=== PATIENT | male | born 1955 | race Caucasian/White ===

== ENCOUNTER 2020-11-26 15:32 | Inpatient (IN) ==
[2020-11-26] MEDS ORDERED: 0.9 % SODIUM CHLORIDE 1,000 ML IV ONE ×2 (15:39→17:32)
--- NOTE | 2020-11-26 15:51 | Emergency Department Note ---
SOB HPI General Chief Complaint: Shortness of Breath/Dyspnea Stated Complaint: shortness of breath, body aches, fatigue Time Seen by Provider: 11/26/20 15:39 Source: patient Mode of arrival: ambulatory Limitations: no limitations History of Present Illness HPI Narrative: Narrative: Patient is a 64-year-old male that comes into the emergency department today after he was seen earlier at the urgent care. He was seen at the urgent care for shortness of breath. He was found to be hypoxic, and was advised to go to the emergency department. Patient indicates that around 5 days ago he started to feel ill with a mild sore throat, body aches, infrequent nonproductive cough, nausea, and some shortness of breath. He had a fever for 1 day, and then reports that the fever went away. He has felt fatigued. He denies any chest pain, wheezing, or dyspnea on exertion. He has not. He does have a history of type 2 diabetes and coronary artery disease with stent placement. He indicates that he feels like he may have influenza. He has not found any relieving or aggravating factors of his symptoms. Related Data Home Medications Medication Instructions Recorded Confirmed insulin detemir U-100 32 unit SQ 07/01/15 11/26/20 lisinopril 40 mg PO 07/01/15 11/26/20 omeprazole 20 mg PO ACB 07/01/15 11/26/20 pioglitazone 15 mg PO DAILY 07/01/15 11/26/20 saxagliptin 2.5 mg PO DAILY 07/01/15 11/26/20 atorvastatin 40 mg tablet 40 mg PO QDAY 05/14/19 11/26/20 furosemide 20 mg tablet 10 mg PO BID 05/14/19 11/26/20 aspirin 81 mg tablet,delayed 81 mg PO QDAY 10/19/20 11/26/20 release empagliflozin 25 mg tablet 25 mg PO QDAY 10/19/20 11/26/20 nateglinide 60 mg tablet 60 mg PO TID 10/19/20 11/26/20 nebivolol 20 mg tablet 20 mg PO QDAY 10/19/20 11/26/20 Previous Rx's Medication Instructions Recorded methocarbamol 500 mg tablet See Rx Instructions PO Q6H PRN #30 10/23/19 tab Allergies Allergy/AdvReac Type Severity Reaction Status Date / Time clopidogrel [From Plavix] Allergy Unknown Unknown Verified 11/26/20 15:08 metformin Allergy Unknown Unknown Verified 11/26/20 15:08 Review of Systems ROS ROS Narrative: Narrative: All systems ED: reviewed and negative except as stated. [facility] Narrative Patient History Narrative: Narrative: Medical/Surgical/Family History All Active Problems (Updated 11/26/20 @ 18:56 by JOSE Neal) Pneumonia due to COVID-19 virus (Acute) Hypoxia (Acute) Mixed hyperlipidemia (Chronic) Edema of lower extremity (Chronic) Arthralgia (Chronic) Presence of drug coated stent in anterior descending branch of left coronary artery (Chronic) Chest pain (Chronic) Coronary artery sclerosis (Chronic) Fracture of rib of left side (Chronic) Myocardial infarction (Chronic) Hemorrhoid (Chronic) Erectile dysfunction (Chronic) GERD (gastroesophageal reflux disease) (Chronic) Coronary artery disease (Chronic) Hyperlipidemia (Chronic) Long-term insulin use (Chronic) Hypertension (Chronic) Type 2 diabetes mellitus with hyperglycemia (Chronic) Morbid (severe) obesity due to excess calories (Chronic) Body mass index [BMI]40.0-44.9, adult (Chronic) Diabetes (Chronic) Fatigue (Chronic) Neck pain (Chronic) Medical History Arthralgia Body mass index [BMI]40.0-44.9, adult Chest pain Coronary artery disease Coronary artery sclerosis Diabetes Edema of lower extremity Erectile dysfunction Fatigue Fracture of rib of left side GERD (gastroesophageal reflux disease) Hemorrhoid Hyperlipidemia Hypertension Long-term insulin use Mixed hyperlipidemia Morbid (severe) obesity due to excess calories Myocardial infarction Neck pain Presence of drug coated stent in anterior descending branch of left coronary artery Type 2 diabetes mellitus with hyperglycemia Surgical History History of ankle surgery (~1992) Repair History of cardiac catheterization (~03/08/17) w/stent placement History of hemorrhoidectomy History of placement of stent in anterior descending branch of left coronary artery History of removal of retained hardware (~1994) Family History Unknown Myocardial infarction Social History Smoking Status: Never smoker Alcohol Intake Frequency: does not drink Substance Use: does not use Exam Narrative Narrative: Narrative: General Limitations: no limitations General appearance: Present alert and in no apparent distress Eye Eye: Present normal appearance; Absent scleral icterus ENT ENT: Present normal oropharynx and mucous membranes moist; Absent nasal congestion and hoarse voice Neck Neck: Present full ROM and trachea midline; Absent meningismus, lymphadenopathy and thyromegaly Chest Chest: Present symmetric chest wall rise Respiratory Respiratory: Present normal lung sounds bilaterally; Absent respiratory distress, rales/crackles, wheezes, stridor, accessory muscle use and prolonged expiratory phase Cardiovascular Cardiovascular: Present regular rate and normal rhythm; Absent systolic murmur and diastolic murmur Adbominal Abdominal: Present soft; Absent distention and tenderness Extremities Extremities: Present normal inspection, full ROM and normal capillary refill; Absent pedal edema, calf tenderness, cyanosis and clubbing Back Back: Present normal inspection and full ROM; Absent CVA tenderness (R) and CVA tenderness (L) Neurological Neurological: Present alert and oriented X3 Psychiatric Psychiatric: Present normal affect and normal mood Skin Skin: Present warm (WNL) and dry Course Vital Signs Vital signs: Vital Signs Temperature 98.4 F 11/26/20 15:34 Pulse Rate 89 11/26/20 15:34 Respiratory Rate 17 11/26/20 15:34 Pulse Oximetry (%) 92 11/26/20 15:34 Temperature 99.1 F H 11/26/20 15:57 Pulse Rate 83 11/26/20 19:17 Respiratory Rate 17 11/26/20 15:41 Blood Pressure 125/50 11/26/20 17:46 Pulse Oximetry (%) 91 11/26/20 19:17 [facility] Narrative Medical decision making narrative: Narrative: 64-year-old male who was seen earlier today at the urgent care, and was found to be hypoxic. He was evaluated here in the emergency department. Room air saturation 88%. His coronavirus test from the urgent care today is positive for coronavirus. Patient requiring 4 L of O2 via nasal cannula. Chest x-ray consistent with suspected Covid pneumonia. Patient was given 6 mg of dexamethasone in the emergency department. EKG normal sinus rhythm with no acute coronary syndrome findings. EKG was interpreted by my supervising physician today, Dr. Cosme Nevarez. Patient's white count today 3.7. H&H normal. Patient's platelets 150. His sodium is 131 with a glucose of 424. Patient was given a total of 2 L normal saline ordered 10 units of IV regular insulin. Recheck of patient's blood sugar was 272. Patient currently requiring 4 L of oxygen via nasal cannula maintain oxygen saturations around 94% sustaining. Patient would benefit from hospital admission for further monitoring due to his hypoxia with the coronavirus. I was able to consult with hospitalist at [facility], Dr. Roland who does accept the patient for hospital admission. Lab Data Lab results reviewed: Yes I reviewed the patient's lab results. Result diagrams: 11/26/20 15:52 11/26/20 15:52 Labs: Lab Results 11/26/20 11/26/20 Range/Units 15:52 15:52 WBC 3.7 L (4.5-11.0) K/mcL RBC 4.81 (4.50-5.90) M/mcL Hgb 14.4 (13.5-16.5) g/dL Hct 42.4 (41.0-55.0) % MCV 88.1 (80.0-100.0) fL MCH 29.9 (26.0-34.0) pg MCHC 34.0 (31.0-36.0) g/dL RDW 14.6 H (11.5-14.5) % Plt Count 150 (140-440) K/mcL MPV 11.5 H (7.4-10.4) fL Neut % (Auto) 75.6 (38.0-78.0) % Lymph % (Auto) 17.0 (15.0-49.0) % [place] % (Auto) 7.1 (1.0-12.0) % Eos % (Auto) 0 (0.0-7.0) % Baso % (Auto) 0.3 (0.0-2.0) % Lymph # (Auto) 0.62 L (1.50-4.80) K/mcL [place] # (Auto) 0.26 (0.10-0.90) K/mcL Eos # (Auto) 0 (0.00-0.70) K/mcL Baso # (Auto) 0.01 (0.00-0.20) K/mcL Absolute Neutrophils 2.76 (1.80-8.00) K/mcL Sodium 131 L (133-145) mmol/L Potassium 4.3 (3.3-5.1) mmol/L Chloride 97 (96-108) mmol/L Carbon Dioxide 19 L (22-30) mmol/L Anion Gap 15.0 (8.0-16.0) BUN 11 (8-23) mg/dL Creatinine 1.0 (0.7-1.2) mg/dL GFR Calculation 80 Glucose 424 H (70-105) mg/dL Calcium 8.1 L (8.6-10.4) mg/dL Total Bilirubin 0.4 (0.1-1.0) mg/dL AST 20 (<40) U/L ALT 17 (<40) U/L Alkaline Phosphatase 86 (39-117) U/L Total Protein 6.5 (5.9-8.4) gm/dL Albumin 3.4 (3.2-5.2) gm/dL Globulin 3.1 (2.2-3.7) gm/dL Albumin/Globulin Ratio 1.1 (1.0-2.3) Radiology Data Radiology results reviewed: Yes I reviewed the patient's radiology results. Radiology results narrative: Ordering Physician: Jose Bacon Date of Service: 11/26/20 Procedure(s): XR chest 1V portable Accession Number(s): [id number] INDICATION: dyspnea TECHNIQUE: AP portable semiupright chest x-ray COMPARISON: None FINDINGS: Lungs:A lateral pulmonary parenchymal infiltrates with peripheral distribution. Appearance is consistent with pneumonia and covid pneumonia is likely. Heart, vascular:No significant cardiomegaly. Pulmonary vascularity is normal. No pulmonary edema or pulmonary congestion Mediastinum, maryann:No mediastinal widening. No hilar mass Pleura:No pleural fluid. No pleural-based mass or calcification Skeletal:Negative. IMPRESSION: 1. Bilateral interstitial pulmonary parenchymal infiltrates 2. Covid pneumonia suspected Interpreted and Authenticated by: Franklin Rivers 11/26/20 160 02 Public Speaking Teacher: <Electronically signed by Franklin Rivers M.D. in OV> 11/26/20 1605 Discharge Plan Patient/Caregiver Discharge Instructions Pt seen by HANDS ASSEMBLER/PA only: No Clinical Impression: Pneumonia due to COVID-19 virus, Hypoxia Patient Disposition: Xfer As Inpt ([facility]) Condition: Fair Follow up with: Andrew Hall DO [Primary Care Provider] - Prescriptions: No Action nateglinide 60 mg tablet 60 mg PO TID RF: 0 Jardiance 25 mg tablet 25 mg PO QDAY RF: 0 Bystolic 20 mg tablet 20 mg PO QDAY RF: 0 aspirin 81 mg tablet,delayed release (DR/EC) 81 mg PO QDAY RF: 0 furosemide [Lasix] 20 mg tablet 10 mg PO BID RF: 0 atorvastatin 40 mg tablet 40 mg PO QDAY RF: 0 methocarbamol 500 mg tablet See Rx Instructions PO Q6H PRN (Reason: pain) Qty: 30 RF: 0 pioglitazone 15 MG tablet 15 mg PO DAILY RF: 0 lisinopril 20 MG tablet 40 mg PO RF: 0 omeprazole 20 MG capsule 20 mg PO ACB RF: 0 insulin detemir U-100 100 UNIT/ML solution 32 unit SQ RF: 0 saxagliptin 2.5 MG tablet 2.5 mg PO DAILY RF: 0
--- NOTE | 2020-11-26 16:08 | XRay Report ---
INDICATION: dyspnea TECHNIQUE: AP portable semiupright chest x-ray COMPARISON: None FINDINGS: Lungs:A lateral pulmonary parenchymal infiltrates with peripheral distribution. Appearance is consistent with pneumonia and covid pneumonia is likely. Heart, vascular:No significant cardiomegaly. Pulmonary vascularity is normal. No pulmonary edema or pulmonary congestion Mediastinum, maryann:No mediastinal widening. No hilar mass Pleura:No pleural fluid. No pleural-based mass or calcification Skeletal:Negative. IMPRESSION: 1. Bilateral interstitial pulmonary parenchymal infiltrates 2. Covid pneumonia suspected Interpreted and Authenticated by: Franklin Rivers 11/26/20
[2020-11-26] MEDS ORDERED: DEXAMETHASONE 0.5 MG/5 ML ORAL.SOL PO ONE (16:09)
--- NOTE | 2020-11-26 16:10 | Emergency Department Note ---
SOB HPI General Chief Complaint: Shortness of Breath/Dyspnea Stated Complaint: shortness of breath, body aches, fatigue Time Seen by Provider: 11/26/20 15:39 Source: patient Mode of arrival: ambulatory Limitations: no limitations History of Present Illness HPI Narrative: Narrative: Related Data Home Medications Medication Instructions Recorded Confirmed insulin detemir U-100 32 unit SQ 07/01/15 11/26/20 lisinopril 40 mg PO 07/01/15 11/26/20 omeprazole 20 mg PO ACB 07/01/15 11/26/20 pioglitazone 15 mg PO DAILY 07/01/15 11/26/20 saxagliptin 2.5 mg PO DAILY 07/01/15 11/26/20 atorvastatin 40 mg tablet 40 mg PO QDAY 05/14/19 11/26/20 furosemide 20 mg tablet 10 mg PO BID 05/14/19 11/26/20 aspirin 81 mg tablet,delayed 81 mg PO QDAY 10/19/20 11/26/20 release empagliflozin 25 mg tablet 25 mg PO QDAY 10/19/20 11/26/20 nateglinide 60 mg tablet 60 mg PO TID 10/19/20 11/26/20 nebivolol 20 mg tablet 20 mg PO QDAY 10/19/20 11/26/20 Previous Rx's Medication Instructions Recorded methocarbamol 500 mg tablet See Rx Instructions PO Q6H PRN #30 10/23/19 tab Allergies Allergy/AdvReac Type Severity Reaction Status Date / Time clopidogrel [From Plavix] Allergy Unknown Unknown Verified 11/26/20 15:08 metformin Allergy Unknown Unknown Verified 11/26/20 15:08 Review of Systems ROS ROS Narrative: Narrative: PFSH Narrative Patient History Narrative: Narrative: Medical/Surgical/Family History All Active Problems (Updated 11/26/20 @ 18:56 by JOSE Neal) Pneumonia due to COVID-19 virus (Acute) Hypoxia (Acute) Mixed hyperlipidemia (Chronic) Edema of lower extremity (Chronic) Arthralgia (Chronic) Presence of drug coated stent in anterior descending branch of left coronary artery (Chronic) Chest pain (Chronic) Coronary artery sclerosis (Chronic) Fracture of rib of left side (Chronic) Myocardial infarction (Chronic) Hemorrhoid (Chronic) Erectile dysfunction (Chronic) GERD (gastroesophageal reflux disease) (Chronic) Coronary artery disease (Chronic) Hyperlipidemia (Chronic) Long-term insulin use (Chronic) Hypertension (Chronic) Type 2 diabetes mellitus with hyperglycemia (Chronic) Morbid (severe) obesity due to excess calories (Chronic) Body mass index [BMI]40.0-44.9, adult (Chronic) Diabetes (Chronic) Fatigue (Chronic) Neck pain (Chronic) Medical History Arthralgia Body mass index [BMI]40.0-44.9, adult Chest pain Coronary artery disease Coronary artery sclerosis Diabetes Edema of lower extremity Erectile dysfunction Fatigue Fracture of rib of left side GERD (gastroesophageal reflux disease) Hemorrhoid Hyperlipidemia Hypertension Long-term insulin use Mixed hyperlipidemia Morbid (severe) obesity due to excess calories Myocardial infarction Neck pain Presence of drug coated stent in anterior descending branch of left coronary artery Type 2 diabetes mellitus with hyperglycemia Surgical History History of ankle surgery (~1992) Repair History of cardiac catheterization (~03/08/17) w/stent placement History of hemorrhoidectomy History of placement of stent in anterior descending branch of left coronary artery History of removal of retained hardware (~1994) Family History Unknown Myocardial infarction Social History Smoking Status: Never smoker Alcohol Intake Frequency: does not drink Substance Use: does not use Exam Narrative Narrative: Narrative: General Limitations: no limitations Course Vital Signs Vital signs: Vital Signs Temperature 98.4 F 11/26/20 15:34 Pulse Rate 89 11/26/20 15:34 Respiratory Rate 17 11/26/20 15:34 Pulse Oximetry (%) 92 11/26/20 15:34 Temperature 95.8 F L 11/27/20 04:01 Pulse Rate 61 11/27/20 04:16 Respiratory Rate 19 11/27/20 04:16 Blood Pressure 120/74 11/27/20 04:01 Pulse Oximetry (%) 95 11/27/20 04:16 MDM MDM Narrative Medical decision making narrative: I evaluated and treated this patient in con junction with the JARED. I agree with their documented history, examination and medical decision making as documented separately. I also evaluated the patient in person with the following additional findings: Patient is complaining of shortness of breath. At the time of my initial exam he is able to speak comfortably in full sentences while on supplemental oxygen via nasal cannula. I discussed the diagnosis and plan for admission with him and his and they are agreeable. EKG performed at 3:56 PM: Sinus rhythm, rate 91. Normal P wave and QRS morphology. T waves are diffusely flattened. No ST segment deviation. Normal [place] QRS and QTc duration. No old EKG immediately available for comparison. EKG was interpreted by me. Lab Data Result diagrams: 11/26/20 15:52 11/26/20 15:52 Labs: Lab Results 11/26/20 11/26/20 11/26/20 Range/Units 15:52 15:52 15:52 WBC 3.7 L (4.5-11.0) K/mcL RBC 4.81 (4.50-5.90) M/mcL Hgb 14.4 (13.5-16.5) g/dL Hct 42.4 (41.0-55.0) % MCV 88.1 (80.0-100.0) fL MCH 29.9 (26.0-34.0) pg MCHC 34.0 (31.0-36.0) g/dL RDW 14.6 H (11.5-14.5) % Plt Count 150 (140-440) K/mcL MPV 11.5 H (7.4-10.4) fL Neut % (Auto) 75.6 (38.0-78.0) % Lymph % (Auto) 17.0 (15.0-49.0) % [place] % (Auto) 7.1 (1.0-12.0) % Eos % (Auto) 0 (0.0-7.0) % Baso % (Auto) 0.3 (0.0-2.0) % Lymph # (Auto) 0.62 L (1.50-4.80) K/mcL [place] # (Auto) 0.26 (0.10-0.90) K/mcL Eos # (Auto) 0 (0.00-0.70) K/mcL Baso # (Auto) 0.01 (0.00-0.20) K/mcL Absolute Neutrophils 2.76 (1.80-8.00) K/mcL PT 13.9 (11.9-14.5) sec INR 1.0 (0.9-1.1) D-Dimer 1.45 H (0.27-0.50) ug/mL Sodium 131 L (133-145) mmol/L Potassium 4.3 (3.3-5.1) mmol/L Chloride 97 (96-108) mmol/L Carbon Dioxide 19 L (22-30) mmol/L Anion Gap 15.0 (8.0-16.0) BUN 11 (8-23) mg/dL Creatinine 1.0 (0.7-1.2) mg/dL GFR Calculation 80 Glucose 424 H (70-105) mg/dL Calcium 8.1 L (8.6-10.4) mg/dL Ferritin (30.0-400.0) ng/mL Total Bilirubin 0.4 (0.1-1.0) mg/dL AST 20 (<40) U/L ALT 17 (<40) U/L Alkaline Phosphatase 86 (39-117) U/L Total Creatine Kinase (24-195) U/L C-Reactive Protein (0.03-0.80) mg/dL Total Protein 6.5 (5.9-8.4) gm/dL Albumin 3.4 (3.2-5.2) gm/dL Globulin 3.1 (2.2-3.7) gm/dL Albumin/Globulin Ratio 1.1 (1.0-2.3) Procalcitonin (<0.10) ng/mL 11/26/20 11/26/20 Range/Units 15:52 15:52 WBC (4.5-11.0) K/mcL RBC (4.50-5.90) M/mcL Hgb (13.5-16.5) g/dL Hct (41.0-55.0) % MCV (80.0-100.0) fL MCH (26.0-34.0) pg MCHC (31.0-36.0) g/dL RDW (11.5-14.5) % Plt Count (140-440) K/mcL MPV (7.4-10.4) fL Neut % (Auto) (38.0-78.0) % Lymph % (Auto) (15.0-49.0) % [place] % (Auto) (1.0-12.0) % Eos % (Auto) (0.0-7.0) % Baso % (Auto) (0.0-2.0) % Lymph # (Auto) (1.50-4.80) K/mcL [place] # (Auto) (0.10-0.90) K/mcL Eos # (Auto) (0.00-0.70) K/mcL Baso # (Auto) (0.00-0.20) K/mcL Absolute Neutrophils (1.80-8.00) K/mcL PT (11.9-14.5) sec INR (0.9-1.1) D-Dimer (0.27-0.50) ug/mL Sodium (133-145) mmol/L Potassium (3.3-5.1) mmol/L Chloride (96-108) mmol/L Carbon Dioxide (22-30) mmol/L Anion Gap (8.0-16.0) BUN (8-23) mg/dL Creatinine (0.7-1.2) mg/dL GFR Calculation Glucose (70-105) mg/dL Calcium (8.6-10.4) mg/dL Ferritin 1120.0 H (30.0-400.0) ng/mL Total Bilirubin (0.1-1.0) mg/dL AST (<40) U/L ALT (<40) U/L Alkaline Phosphatase (39-117) U/L Total Creatine Kinase 95 (24-195) U/L C-Reactive Protein 11.60 H (0.03-0.80) mg/dL Total Protein (5.9-8.4) gm/dL Albumin (3.2-5.2) gm/dL Globulin (2.2-3.7) gm/dL Albumin/Globulin Ratio (1.0-2.3) Procalcitonin 0.32 H (<0.10) ng/mL Discharge Plan Patient/Caregiver Discharge Instructions Pt seen by [facility] MAGISTRATE/PA only: No Clinical Impression: Pneumonia due to COVID-19 virus, Hypoxia Patient Disposition: Xfer As Inpt ([facility]) Condition: Fair Discharge Date/Time: 11/26/20 21:03 Discharge Location: [facility]
[2020-11-26] MEDS ORDERED: DEXAMETHASONE 4 MG TABLET PO ONE (16:19)
[2020-11-26 16:57] LABS: Basophils # (Auto) 0.01 K/mcL (0.00-0.20); Basophils % (Auto) 0.3 % (0.0-2.0); Eosinophils # (Auto) 0 K/mcL (0.00-0.70); Eosinophils % (Auto) 0 % (0.0-7.0); Hematocrit 42.4 % (41.0-55.0); Hemoglobin 14.4 g/dL (13.5-16.5); Lymphocytes # (Auto) 0.62 K/mcL (1.50-4.80); Mean Cell Volume 88.1 fL (80.0-100.0); Mean Platelet Volume 11.5 fL (7.4-10.4); Monocytes # (Auto) 0.26 K/mcL (0.10-0.90); Monocytes % (Auto) 7.1 % (1.0-12.0); Neutrophils % (Auto) 75.6 % (38.0-78.0); Platelet Count 150 K/mcL (140-440); RBC 4.81 M/mcL (4.50-5.90); Red Cell Distribution Width 14.6 % (11.5-14.5); WBC 3.7 K/mcL (4.5-11.0)
[2020-11-26 17:22] LABS: ALT/SGPT 17 U/L (<40); AST/SGOT 20 U/L (<40); Albumin 3.4 gm/dL (3.2-5.2); Albumin/Globulin Ratio 1.1 (1.0-2.3); Alkaline Phosphatase 86 U/L (39-117); Bilirubin,Total 0.4 mg/dL (0.1-1.0); Blood Urea Nitrogen 11 mg/dL (8-23); Calcium 8.1 mg/dL (8.6-10.4); Carbon Dioxide 19 mmol/L (22-30); Chloride 97 mmol/L (96-108); Globulin 3.1 gm/dL (2.2-3.7); Glomerular Filtration Rate 80; Glucose 424 mg/dL (70-105)
[2020-11-26] MEDS ORDERED: INSULIN REGULAR, HUMAN 1 UNIT/0.01 ML UNIT IV ONE (17:32)
[2020-11-26] MEDS ORDERED: REMDESIVIR 200 MG in 0.9 % SODIUM CHLORIDE 250 ML IV ONE ×2 (17:44→21:11)
--- NOTE | 2020-11-26 18:09 | Internal Med History&Physical ---
HPI History of Present Illness Patient information: Note initiated : 11/26/20 at 6:03 pm Service Date, if different from initiated Date: [] Patient: Jennifer Luu a 64 y/o M admitted on for shortness of breath, body aches, fatigue. Chief Complaint: [] History of present illness: Mr. Luu is a 64 year old M History of diabetes hypertension CAD who has been feeling ill for about a week and started with sore throat body aches and fevers per day fatigue shortness of breath he has a cough that is mildly productive. Shortness of breath has been worsening a week and fatigue has been worsening. Presented to urgent care today and then sent to the ER because he was hypoxic in the mid 80s. Covid test was positive. Chest x-ray with bilateral infiltrates. He is on 3 to 4 L nasal cannula at this time. Denies chest pain. Review of Systems: Pertinent positive as above. Denies headache/chills/nausea/vomiting/chest or abdominal pain/diarrhea. Remaining 10 point review of system reviewed negative PFSH PFSH All Active Problems (Updated 11/26/20 @ 15:22 by Clemente Ma PA-C) Hypoxia (Acute) Mixed hyperlipidemia (Chronic) Edema of lower extremity (Chronic) Arthralgia (Chronic) Presence of drug coated stent in anterior descending branch of left coronary artery (Chronic) Chest pain (Chronic) Coronary artery sclerosis (Chronic) Fracture of rib of left side (Chronic) Myocardial infarction (Chronic) Hemorrhoid (Chronic) Erectile dysfunction (Chronic) GERD (gastroesophageal reflux disease) (Chronic) Coronary artery disease (Chronic) Hyperlipidemia (Chronic) Long-term insulin use (Chronic) Hypertension (Chronic) Type 2 diabetes mellitus with hyperglycemia (Chronic) Morbid (severe) obesity due to excess calories (Chronic) Body mass index [BMI]40.0-44.9, adult (Chronic) Diabetes (Chronic) Fatigue (Chronic) Neck pain (Chronic) Medical History Arthralgia Body mass index [BMI]40.0-44.9, adult Chest pain Coronary artery disease Coronary artery sclerosis Diabetes Edema of lower extremity Erectile dysfunction Fatigue Fracture of rib of left side GERD (gastroesophageal reflux disease) Hemorrhoid Hyperlipidemia Hypertension Long-term insulin use Mixed hyperlipidemia Morbid (severe) obesity due to excess calories Myocardial infarction Neck pain Presence of drug coated stent in anterior descending branch of left coronary artery Type 2 diabetes mellitus with hyperglycemia Surgical History History of ankle surgery (~1992) Repair History of cardiac catheterization (~03/08/17) w/stent placement History of hemorrhoidectomy History of placement of stent in anterior descending branch of left coronary artery History of removal of retained hardware (~1994) Family History Unknown Myocardial infarction Social History marital status: occupational status: employed smoking status: Never smoker alcohol intake frequency: does not drink substance use type: does not use MEDS/ALLERGIES Home Medications and Allergies Home Medications Medication Instructions Recorded Confirmed Type insulin detemir U-100 32 unit SQ 07/01/15 11/26/20 History lisinopril 40 mg PO 07/01/15 11/26/20 History omeprazole 20 mg PO ACB 07/01/15 11/26/20 History pioglitazone 15 mg PO DAILY 07/01/15 11/26/20 History saxagliptin 2.5 mg PO DAILY 07/01/15 11/26/20 History atorvastatin 40 mg tablet 40 mg PO QDAY 05/14/19 11/26/20 History furosemide 20 mg tablet 10 mg PO BID 05/14/19 11/26/20 History methocarbamol 500 mg tablet See Rx Instructions PO Q6H PRN #30 10/23/19 11/26/20 Rx tab aspirin 81 mg tablet,delayed 81 mg PO QDAY 10/19/20 11/26/20 History release empagliflozin 25 mg tablet 25 mg PO QDAY 10/19/20 11/26/20 History nateglinide 60 mg tablet 60 mg PO TID 10/19/20 11/26/20 History nebivolol 20 mg tablet 20 mg PO QDAY 10/19/20 11/26/20 History Allergies Allergy/AdvReac Type Severity Reaction Status Date / Time clopidogrel [From Plavix] Allergy Unknown Unknown Verified 11/26/20 15:08 metformin Allergy Unknown Unknown Verified 11/26/20 15:08 EXAM Constitutional Vitals: Temp Pulse Resp BP Pulse Ox 99.1 F H 88 17 132/79 94 11/26/20 15:57 11/26/20 17:02 11/26/20 15:41 11/26/20 17:16 11/26/20 17:02 Exam: General: Alert, Awake, No acute Distress, obese Eyes/N/T: EOMI, PERRL, Head/Neck: neck supple, normocephalic atraumatic CV: RRR, No murmurs, normal s1/s2 Pulm: Clear b/l, no wheezing/rhonchi/rales Abd: soft, nontender, +BS x4 Ext: no clubbing/cyanosis/edema Neuro: Alert, no focal deficits, moves all extremities, CN 2-12 grossly intact, symmetrical strength b/l upper/lower, sensations intact b/l upper/lower Skin: warm/dry DATA Data Completed and Pending Labs: Labs from last 24 hours 11/26/20 11/26/20 15:52 15:52 WBC 3.7 L RBC 4.81 Hgb 14.4 Hct 42.4 MCV 88.1 MCH 29.9 MCHC 34.0 RDW 14.6 H Plt Count 150 MPV 11.5 H Neut % (Auto) 75.6 Lymph % (Auto) 17.0 [place] % (Auto) 7.1 Eos % (Auto) 0 Baso % (Auto) 0.3 Lymph # (Auto) 0.62 L [place] # (Auto) 0.26 Eos # (Auto) 0 Baso # (Auto) 0.01 Absolute Neutrophils 2.76 Sodium 131 L Potassium 4.3 Chloride 97 Carbon Dioxide 19 L Anion Gap 15.0 BUN 11 Creatinine 1.0 GFR Calculation 80 Glucose 424 H Calcium 8.1 L Total Bilirubin 0.4 AST 20 ALT 17 Alkaline Phosphatase 86 Total Protein 6.5 Albumin 3.4 Globulin 3.1 Albumin/Globulin Ratio 1.1 A/P Narrative A/P Narrative: A: *Covid pneumonia: -Afebrile on admission, no leukocytosis *Acute hypoxic respiratory failure: -currently 3-4L NC *DM: *CAD w/stent: *HTN: *Obesity: *GERD: * P: -Rem/Dexa -O2 support, IS/Acapella -daily proning / mobilization -Check ABG -basal and SSI -cont home ACEI/BB -cont home ASA/Statin - -pt/ot -ppx: lovenox bid / home ppi full code Time Spent With Patient Time: Total time spent is greater than 50% in coordination of care (as documented) at patient's floor/unit and/or counseling patient:
[2020-11-26] MEDS ORDERED: DEXTROSE 50% 50 ML VIAL IV PRN ×3 (20:16→21:03)
[2020-11-26] MEDS ORDERED: DEXTROSE 31 GM ORAL.SUSP PO PRN ×3 (20:16→21:03)
[2020-11-26 21:00] LABS: Creatine Kinase 95 U/L (24-195)
[2020-11-26] MEDS ORDERED: INSULIN LISPRO 1 UNIT/0.01 ML UNIT SQ SCH (21:03)
[2020-11-26] MEDS ORDERED: SENNOSIDES 1 TABLET PO PRN (21:03)
[2020-11-26] MEDS ORDERED: ONDANSETRON 4 MG/2 ML VIAL IV PRN (21:03)
[2020-11-26] MEDS ORDERED: IPRATROPIUM/ALBUTEROL 3 ML AMPUL.NEB NEB PRN (21:03)
[2020-11-26] MEDS ORDERED: POTASSIUM CHLORIDE 40 MEQ in DEXTROSE 5% IN WATER 500 ML IV PRN (21:03)
[2020-11-26] MEDS ORDERED: POTASSIUM CHLORIDE 20 MEQ TABLET PO PRN ×2 (21:03)
[2020-11-26] MEDS ORDERED: MAGNESIUM SULFATE 2 GM/50 ML BAG IV PRN (21:03)
[2020-11-26] MEDS ORDERED: ACETAMINOPHEN 325 MG TABLET PO PRN (21:03)
[2020-11-26] MEDS ORDERED: REMDESIVIR 100 MG in 0.9 % SODIUM CHLORIDE 250 ML IV SCH (21:03)
[2020-11-26] MEDS ORDERED: POLYETHYLENE GLYCOL 3350 17 GM PACKET PO PRN (21:03)
[2020-11-26 21:05] LABS: Prothrombin Time 13.9 sec (11.9-14.5)
[2020-11-26] MEDS ORDERED: ENOXAPARIN 40 MG/0.4 ML SYRINGE ONE (21:56)
[2020-11-26] MEDS: 0.9 % SODIUM CHLORIDE 10 ML SYRINGE IV SCH (22:24)
[2020-11-26] MEDS: ENOXAPARIN 40 MG/0.4 ML SYRINGE SQ SCH (22:26)
[2020-11-26 22:48] LABS: Hemoglobin A1C 12.4 % Hgb (4.0-6.0)
[2020-11-26] MEDS: INSULIN LISPRO 1 UNIT/0.01 ML UNIT SQ SCH (23:30)
[2020-11-27] MEDS ORDERED: INSULIN LISPRO 1 UNIT/0.01 ML UNIT SQ SCH
[2020-11-27] MEDS: INSULIN LISPRO 1 UNIT/0.01 ML UNIT SQ SCH ×6 (05:21→21:28)
[2020-11-27] MEDS: 0.9 % SODIUM CHLORIDE 10 ML SYRINGE IV SCH ×3 (05:21→21:29)
[2020-11-27 06:42] LABS: Hematocrit 40.4 % (41.0-55.0); Hemoglobin 13.6 g/dL (13.5-16.5); Mean Cell Volume 89.6 fL (80.0-100.0); Mean Corpuscular HGB Conc 33.7 g/dL (31.0-36.0); Mean Platelet Volume 11.8 fL (7.4-10.4); Platelet Count 141 K/mcL (140-440); RBC 4.51 M/mcL (4.50-5.90); Red Cell Distribution Width 14.4 % (11.5-14.5); WBC 3.1 K/mcL (4.5-11.0)
[2020-11-27] MEDS: ENOXAPARIN 40 MG/0.4 ML SYRINGE SQ SCH ×2 (08:07→21:28)
[2020-11-27] MEDS: PANTOPRAZOLE 40 MG TABLET PO SCH (08:12)
[2020-11-27] MEDS: DEXAMETHASONE 4 MG TABLET PO SCH (08:13)
[2020-11-27 08:18] LABS: Anisocytosis FEW (None Seen); Band Neutrophils % 6 % (0-10); Lymphocytes % 8 % (15-49); Monocytes % (Manual) 8 % (1-12); Platelet Estimate NORMAL (Normal); RBC Morphology ABNORMAL (Normal); Segmented Neutrophils % 78 % (38-78)
--- NOTE | 2020-11-27 08:30 | Internal Med Progress Note ---
SUBJECTIVE Subjective Patient information: Note initiated : 11/27/20 at 8:22 am Service Date, if different from initiated Date: [] Patient: Jennifer Luu 65 y/o M admitted on 11/26/20 for shortness of breath, body aches, fatigue. Chief Complaint: [] Interval history: History of present illness: Mr. Luu is a 64 year old M History of diabetes hypertension CAD who has been feeling ill for about a week and started with sore throat body aches and fevers per day fatigue shortness of breath he has a cough that is mildly productive. Shortness of breath has been worsening a week and fatigue has been worsening. Presented to urgent care today and then sent to the ER because he was hypoxic in the mid 80s. Covid test was positive. Chest x-ray with bilateral infiltrates. He is on 3 to 4 L nasal cannula at this time. Denies chest pain. 11/27 Constitutional Vitals: Vital Signs Temp Pulse Resp BP Pulse Ox 97.4 F 60 19 139/79 95 11/27/20 08:01 11/27/20 08:01 11/27/20 08:01 11/27/20 08:01 11/27/20 08:01 Period Temp Pulse Resp BP Sys/Uriostegui Pulse Ox Last 24 Hr 95.8 F-99.1 F 60-92 17-32 116-164/50-96 86-96 Intake and Output 11/26/20 11/27/20 11/27/20 21:59 05:59 13:59 Intake Total 1999 550 Output Total 850 Balance 1999 -300 Weight 122.47 kg Intake & Output: Intake & Output 11/26/20 11/27/20 11/27/20 21:59 05:59 13:59 Intake Total 2000 550 Output Total 850 Balance 1999 -300 Weight 122.47 kg Intake: IV 2000 250 Sodium Chloride 0.9% 1,000 ml @ 2000 Wide Open IV BOLUS ONE Rx#: [id number] Veklury 200 mg In Sodium 250 Chloride 0.9% 250 ml @ 500 mls/ hr IV ONCE ONE Rx#:[id number] Oral 300 Output: Void Amount 850 Other: Urine Appearance Clear Urine Color Bright Yellow Exam: General: Alert, Awake, No acute Distress, obese Eyes/N/T: EOMI, Head/Neck: neck supple, CV: RRR, No murmurs, Pulm: Clear b/l, no wheezing/rhonchi/rales Abd: soft, nontender, +BS x4 Ext: no clubbing/cyanosis/edema Neuro: Alert, no focal deficits, moves all extremities, Skin: warm/dry OBJ DATA Labs CBC & Chem 7: 11/27/20 05:02 11/26/20 15:52 Labs: Abnormal Lab Results 11/27/20 11/27/20 11/26/20 05:02 05:02 21:08 WBC 3.1 L Hct 40.4 L RDW MPV 11.8 H Lymph # (Auto) Lymphocytes % 8 L RBC Morphology Abnormal A Anisocytosis Few A D-Dimer Sodium Carbon Dioxide Glucose Hemoglobin A1c 12.4 H Calcium Ferritin C-Reactive Protein 11.40 H Procalcitonin 11/26/20 11/26/20 11/26/20 15:52 15:52 15:52 WBC Hct RDW MPV Lymph # (Auto) Lymphocytes % RBC Morphology Anisocytosis D-Dimer 1.45 H Sodium Carbon Dioxide Glucose Hemoglobin A1c Calcium Ferritin 1120.0 H C-Reactive Protein 11.60 H Procalcitonin 0.32 H 11/26/20 11/26/20 15:52 15:52 WBC 3.7 L Hct RDW 14.6 H MPV 11.5 H Lymph # (Auto) 0.62 L Lymphocytes % RBC Morphology Anisocytosis D-Dimer Sodium 131 L Carbon Dioxide 19 L Glucose 424 H Hemoglobin A1c Calcium 8.1 L Ferritin C-Reactive Protein Procalcitonin Meds: Medications Acetaminophen (Acetaminophen 325 Mg Tablet) 650 mg PO Q6HP PRN PRN Reason: PAIN/FEVER > 101 Albuterol/Ipratropium (Ipratropium/Albuterol 3 Ml Ampul.Neb) 3 ml NEB Q4HP PRN PRN Reason: Shortness Of Breath Dexamethasone (Dexamethasone 4 Mg Tablet) 6 mg PO DAILY [facility] Last Admin: 11/27/20 08:13 Dose: 6 mg Documented by: Dextrose (Dextrose 50% 50 Ml Vial) 0 ml IV UD PRN PRN Reason: Hypoglycemia Diagnostic Test (Pha) (Accu-Chek 1 Each Strip) 1 each FS Q4 [facility] Last Admin: 11/27/20 08:15 Dose: 1 each Documented by: Enoxaparin Sodium (Enoxaparin 40 Mg/0.4 Ml Syringe) 40 mg SQ BID [facility] Last Admin: 11/27/20 08:07 Dose: 40 mg Documented by: Glucose (Dextrose 31 Gm Oral.Susp) 15 gm PO PRN PRN PRN Reason: Hypoglycemia Potassium Chloride 40 meq/ (Dextrose) 520 mls @ 130 mls/hr IV UD PRN PRN Reason: Potassium < 3 Magnesium Sulfate (Magnesium Sulfate) 2 gm in 50 mls @ 50 mls/hr IV UD PRN PRN Reason: Magnesium </= 1.6 REMDESIVIR 100 mg/ Sodium (Chloride) 250 mls @ 500 mls/hr IV Q24H [facility] Stop: 11/30/20 14:29 Insulin Human Lispro (Insulin Lispro 1 Unit/0.01 Ml Unit) 0 unit SQ Q4 [facility]; Protocol Last Admin: 11/27/20 05:21 Dose: 8 units Documented by: Ondansetron HCl (Ondansetron 4 Mg/2 Ml Vial) 4 mg IV Q4HP PRN PRN Reason: Nausea And Vomiting Pantoprazole Sodium (Pantoprazole 40 Mg Tablet) 40 mg PO QAMAC [facility] Last Admin: 11/27/20 08:12 Dose: 40 mg Documented by: Polyethylene Glycol (Polyethylene Glycol 3350 17 Gm Packet) 17 gm PO DAILYP PRN PRN Reason: Constipation Potassium Chloride (Potassium Chloride 20 Meq Tablet) 40 meq PO UD PRN PRN Reason: Potssium is 3-3.5 Potassium Chloride (Potassium Chloride 20 Meq Tablet) 40 meq PO UD PRN PRN Reason: Potassium < 3 Senna (Sennosides 1 Tablet) 2 tab PO DAILYP PRN PRN Reason: Constipation Sodium Chloride (0.9 % Sodium Chloride 10 Ml Syringe) 10 ml IV Q8 [facility] Last Admin: 11/27/20 05:21 Dose: 10 ml Documented by: A/P Narrative A/P Narrative: A: *Covid pneumonia with borderline ARDS per ratio: -Afebrile on admission, no leukocytosis *Acute hypoxic respiratory failure: -changed to vapotherm b/c he would desat when falling asleep *DM, uncontrolled: A1c 12.4 -pt admits to not being entirely compliant with meds *CAD w/stent: *HTN: *Obesity: *?EMMA: *GERD: * P: -Rem/Dexa -O2 support, IS/Acapella -daily proning / mobilization -basal (may need uptitration) and SSI -cont home ACEI/BB -cont home ASA/Statin -still waiting for meds to be reconciled before starting home meds -may benefit from sleep study outpt -pt/ot -ppx: lovenox bid / home ppi full code Time Spent With Patient Time: Total time spent is greater than 50% in coordination of care (as documented) at patient's floor/unit and/or counseling patient:
[2020-11-27] MEDS ORDERED: INSULIN GLARGINE, HUMAN 1 UNIT/0.01 ML SQ SCH ×2 (09:00→21:00)
[2020-11-27] MEDS: ASPIRIN 81 MG TAB.CHEW PO SCH (09:05)
[2020-11-27 09:07] LABS: ALT/SGPT 14 U/L (<40); AST/SGOT 18 U/L (<40); Alkaline Phosphatase 76 U/L (39-117); Bilirubin,Direct < 0.2 mg/dL (0-0.3); Bilirubin,Total 0.3 mg/dL (0.1-1.0); Blood Urea Nitrogen 16 mg/dL (8-23); Calcium 7.9 mg/dL (8.6-10.4); Carbon Dioxide 16 mmol/L (22-30); Chloride 102 mmol/L (96-108); Globulin 3.1 gm/dL (2.2-3.7); Glomerular Filtration Rate 95; Glucose 281 mg/dL (70-105); Lactate Dehydrogenase 405 U/L (135-225); Phosphorous 2.2 mg/dL (2.5-4.5); Triglycerides 82 mg/dL (<150); Uric Acid 6.3 mg/dL (2.5-8.0)
[2020-11-27] MEDS: ATORVASTATIN 40 MG TABLET PO SCH (09:07)
[2020-11-27] MEDS ORDERED: INSULIN DETEMIR U SCH (09:15)
[2020-11-27] MEDS ORDERED: IPRATROPIUM/ALBUTEROL SULFATE 1 PUFF INHALER INH PRN (10:08)
[2020-11-27] MEDS ORDERED: IPRATROPIUM/ALBUTEROL SULFATE 1 PUFF INHALER INH ONE (10:08)
[2020-11-27] MEDS: FUROSEMIDE 20 MG TABLET PO SCH ×2 (10:17→21:29)
[2020-11-27] MEDS: NATEGLINIDE 120 MG TABLET PO SCH ×2 (11:55→17:40)
[2020-11-27] MEDS ORDERED: REMDESIVIR 100 MG in 0.9 % SODIUM CHLORIDE 250 ML IV SCH (14:00)
[2020-11-27] MEDS: cefTRIAXone 1 GM VIAL IV SCH (15:07)
--- NOTE | 2020-11-27 15:13 | Cat Scan Report ---
INDICATION: covid pneumonia COMPARISON: None TECHNIQUE: Axial noncontrast enhanced images through the chest. Sagittally and coronally reformatted images. MIP reformatted images. FINDINGS: Lungs:There are bilateral groundglass infiltrates with predominantly peripheral distribution. Appearance is typical for covid pneumonia. There are some small focal areas of consolidation with surrounding groundglass infiltrates, so-called halo sign. These are predominantly right upper lobe. Mediastinum, vascular: There is no pneumomediastinum. No pathologic mediastinal or hilar adenopathy Thoracic aorta is negative. No aneurysmal dilatation Heart:No significant cardiomegaly. No pericardial effusion. Severe coronary artery disease Pleura:No pleural effusion. No pleural-based mass. No pleural calcification. No pneumothorax. Axilla, supraclavicular regions, chest wall:No axillary or supraclavicular adenopathy. Musculoskeletal:No thoracic compression fractures. No lytic lesions. No sternal or rib lesions Upper Abdomen:Negative to the limits of noncontrast enhanced examination IMPRESSION: 1. Pulmonary parenchymal infiltrates consistent with covid pneumonia 2. Calcified coronary artery disease 3. No pneumomediastinum The exam was performed using radiation dose optimization techniques including, but not limited to, automated exposure control, adjustment of the mA and/or kV according to patient size and use of iterative reconstruction technique. Interpreted and Authenticated by: Franklin Rivers 11/27/20
[2020-11-27] MEDS: AZITHROMYCIN 500 MG in DEXTROSE 5% IN WATER 250 ML IV SCH (15:54)
--- NOTE | 2020-11-27 16:05 | EKG ---
[facility] Test Date: 2020-11-26 Pat Name: Jennifer Luu Department: ED Room: Gender: Male Color Grinder: JOSEMANUEL : 1955 Requested By: Jose Bacon Order Number: [id number] Reading MD: Steve Santana M.D. Measurements Intervals [place] Rate: 91 P: 52 OR: 144 QRS: -18 QRSD: 86 T: 7 QT: 372 QTc: 458 Interpretive Statements SINUS RHYTHM BORDERLINE T ABNORMALITIES, DIFFUSE LEADS NO PRIOR TRACING FOR COMPARISON BORDERLINE TRACING Electronically Signed On 11-27-2020 16:04:58 PDT by Steve Santana M.D. /store/[email or web address]/[id number]
[2020-11-27] MEDS ORDERED: DEXTROSE 50% 50 ML VIAL IV PRN (16:21)
[2020-11-27] MEDS ORDERED: DEXTROSE 31 GM ORAL.SUSP PO PRN (16:21)
[2020-11-27] MEDS ORDERED: INSULIN LISPRO 1 UNIT/0.01 ML UNIT SQ ONE (17:39)
[2020-11-27] MEDS: INSULIN GLARGINE, HUMAN 1 UNIT/0.01 ML SQ SCH (21:28)
[2020-11-28] MEDS: 0.9 % SODIUM CHLORIDE 10 ML SYRINGE IV SCH ×4 (05:01→22:00)
[2020-11-28 07:05] LABS: Basophils # (Auto) 0.02 K/mcL (0.00-0.20); Basophils % (Auto) 0.2 % (0.0-2.0); Eosinophils # (Auto) 0 K/mcL (0.00-0.70); Eosinophils % (Auto) 0 % (0.0-7.0); Hematocrit 40.9 % (41.0-55.0); Hemoglobin 13.6 g/dL (13.5-16.5); Lymphocytes # (Auto) 0.72 K/mcL (1.50-4.80); Lymphocytes % (Auto) 8.7 % (15.0-49.0); Mean Cell Volume 89.1 fL (80.0-100.0); Mean Corpuscular HGB Conc 33.3 g/dL (31.0-36.0); Mean Platelet Volume 11.5 fL (7.4-10.4); Monocytes # (Auto) 0.73 K/mcL (0.10-0.90); Monocytes % (Auto) 8.9 % (1.0-12.0); Neutrophils % (Auto) 82.2 % (38.0-78.0); Platelet Count 201 K/mcL (140-440); RBC 4.59 M/mcL (4.50-5.90); Red Cell Distribution Width 14.2 % (11.5-14.5); WBC 8.2 K/mcL (4.5-11.0)
[2020-11-28 07:46] LABS: ALT/SGPT 16 U/L (<40); AST/SGOT 19 U/L (<40); Albumin 3.2 gm/dL (3.2-5.2); Albumin/Globulin Ratio 1.1 (1.0-2.3); Alkaline Phosphatase 78 U/L (39-117); Bilirubin,Total 0.3 mg/dL (0.1-1.0); Blood Urea Nitrogen 18 mg/dL (8-23); Calcium 8.2 mg/dL (8.6-10.4); Carbon Dioxide 20 mmol/L (22-30); Chloride 102 mmol/L (96-108); Glomerular Filtration Rate 91; Glucose 245 mg/dL (70-105)
[2020-11-28 07:48] LABS: ALT/SGPT 16 U/L (<40); AST/SGOT 19 U/L (<40); Albumin 3.1 gm/dL (3.2-5.2); Alkaline Phosphatase 78 U/L (39-117); Bilirubin,Direct < 0.2 mg/dL (0-0.3); Bilirubin,Total 0.3 mg/dL (0.1-1.0); Blood Urea Nitrogen 18 mg/dL (8-23); Calcium 8.3 mg/dL (8.6-10.4); Carbon Dioxide 20 mmol/L (22-30); Chloride 102 mmol/L (96-108); Glomerular Filtration Rate 91; Glucose 241 mg/dL (70-105); Lactate Dehydrogenase 396 U/L (135-225); Phosphorous 2.5 mg/dL (2.5-4.5); Triglycerides 76 mg/dL (<150); Uric Acid 6.3 mg/dL (2.5-8.0)
[2020-11-28] MEDS: NATEGLINIDE 120 MG TABLET PO SCH ×3 (07:48→18:31)
[2020-11-28] MEDS: PANTOPRAZOLE 40 MG TABLET PO SCH (07:48)
[2020-11-28] MEDS ORDERED: Empagliflozin [Jardiance] 25 mg tablet PO SCH (09:00)
[2020-11-28] MEDS ORDERED: LISINOPRIL 20 MG TABLET PO SCH (09:00)
[2020-11-28] MEDS ORDERED: NEBIVOLOL 20 MG PO SCH (09:00)
[2020-11-28] MEDS: INSULIN LISPRO 1 UNIT/0.01 ML UNIT SQ SCH ×5 (09:06→22:11)
[2020-11-28] MEDS: DEXAMETHASONE 4 MG TABLET PO SCH (09:07)
[2020-11-28] MEDS: INSULIN GLARGINE, HUMAN 1 UNIT/0.01 ML SQ SCH ×2 (09:07→21:46)
[2020-11-28] MEDS: ASPIRIN 81 MG TAB.CHEW PO SCH (09:07)
[2020-11-28] MEDS: ENOXAPARIN 40 MG/0.4 ML SYRINGE SQ SCH (09:09)
[2020-11-28] MEDS: ATORVASTATIN 40 MG TABLET PO SCH (09:09)
[2020-11-28] MEDS: FUROSEMIDE 20 MG TABLET PO SCH ×2 (09:09→21:49)
[2020-11-28] MEDS: cefTRIAXone 1 GM VIAL IV SCH (09:16)
[2020-11-28] MEDS: AZITHROMYCIN 500 MG in DEXTROSE 5% IN WATER 250 ML IV SCH (09:17)
[2020-11-28] MEDS ORDERED: DEXTROSE 31 GM ORAL.SUSP PO PRN ×2 (13:31→21:25)
[2020-11-28] MEDS ORDERED: DEXTROSE 50% 50 ML VIAL IV PRN ×2 (13:31→21:25)
[2020-11-28] MEDS ORDERED: IPRATROPIUM/ALBUTEROL 3 ML AMPUL.NEB NEB PRN (13:41)
[2020-11-28] MEDS ORDERED: SENNOSIDES 1 TABLET PO PRN (13:41)
[2020-11-28] MEDS ORDERED: ACETAMINOPHEN 325 MG TABLET PO PRN (13:41)
[2020-11-28] MEDS ORDERED: POTASSIUM CHLORIDE 40 MEQ in DEXTROSE 5% IN WATER 500 ML IV PRN (13:41)
[2020-11-28] MEDS ORDERED: POLYETHYLENE GLYCOL 3350 17 GM PACKET PO PRN (13:41)
[2020-11-28] MEDS ORDERED: POTASSIUM CHLORIDE 20 MEQ TABLET PO PRN ×2 (13:41)
[2020-11-28] MEDS ORDERED: MAGNESIUM SULFATE 2 GM/50 ML BAG IV PRN (13:41)
[2020-11-28] MEDS ORDERED: ONDANSETRON 4 MG/2 ML VIAL IV PRN (13:41)
[2020-11-28] MEDS: REMDESIVIR 100 MG in 0.9 % SODIUM CHLORIDE 250 ML IV SCH (14:19)
--- NOTE | 2020-11-28 14:23 | Internal Med Progress Note ---
SUBJECTIVE Subjective Patient information: Note initiated : 11/28/20 at 2:21 pm Service Date, if different from initiated Date: [] Patient: Jennifer Luu a 65 y/o M admitted on 11/26/20 for shortness of breath, body aches, fatigue. Chief Complaint: [CoVID pneumonia] Interval history: History of present illness: Mr. Luu is a 64 year old M History of diabetes hypertension CAD who has been feeling ill for about a week and started with sore throat body aches and fevers per day fatigue shortness of breath he has a cough that is mildly productive. Shortness of breath has been worsening a week and fatigue has been worsening. Presented to urgent care today and then sent to the ER because he was hypoxic in the mid 80s. Covid test was positive. Chest x-ray with bilateral infiltrates. He is on 3 to 4 L nasal cannula at this time. Denies chest pain. 11/28: Afebrile overnight. Been on Vapotherm. Blood cultures no growth to date. Patient is c/o shortness of breath, moderate. He is c/o nonproductive cough as well as respiratory wheezing. He denies any chest pain. He denies any fever or chills or sweating. Constitutional Vitals: Vital Signs Temp Pulse Resp BP Pulse Ox 36.2 C 75 20 146/74 92 11/28/20 12:59 11/28/20 13:48 11/28/20 13:48 11/28/20 12:59 11/28/20 13:48 Period Temp Pulse Resp BP Sys/Uriostegui Pulse Ox Last 24 Hr 35.8 C-36.7 C 52-91 14-24 117-146/62-76 91-96 Intake and Output 11/28/20 11/28/20 11/28/20 05:59 13:59 21:59 Intake Total 250 Output Total 750 Balance -750 250 Weight 116.709 kg Patient Weight 11/29/20 05:59 Weight 116.709 kg Intake & Output: Intake & Output 11/28/20 11/28/20 11/28/20 05:59 13:59 21:59 Intake Total 250 Output Total 750 Balance -750 250 Weight 116.709 kg Intake: IV 250 Zithromax 500 mg In Dextrose 5% 250 in Water 250 ml @ 250 mls/hr IV Q24H [facility] Rx#:[id number] Output: Void Amount 750 Other: Urine Appearance Clear Urine Color Bright Yellow Urine Odor Normal General appearance: cooperative and no acute distress Head Head exam: Present atraumatic and normocephalic Eye Eye exam: Present EOMI and PERRL ENT ENT exam: Present mucous membranes moist, normal exam and normal external ear exam Additional comments: Vapotherm in place Neck Neck exam: Present normal inspection; Absent lymphadenopathy, tenderness and thyromegaly Respiratory Respiratory exam: Present wheezes; Absent accessory muscle use and respiratory distress Cardiovascular Cardiovascular exam: Present normal rate and rhythm; Absent JVD GI/Abdominal GI/Abdominal exam: Present normal bowel sounds and soft; Absent organomegaly and tenderness Rectal Rectal exam: Present deferred Extremities Exam Extremities exam: Present full ROM, normal capillary refill and normal inspection; Absent tenderness Neurological Exam Neurological exam: Present alert, CN II-XII intact and oriented X3; Absent motor sensory deficit Psychiatric Psychiatric exam: Present normal affect and normal mood; Absent anxious and depressed Skin Skin exam: Present dry and intact OBJ DATA Labs CBC & Chem 7: 11/28/20 05:05 11/28/20 05:05 Labs: Abnormal Lab Results 11/28/20 11/28/20 11/28/20 05:05 05:05 05:05 WBC Hct 40.9 L RDW MPV 11.5 H Neut % (Auto) 82.2 H Lymph % (Auto) 8.7 L Lymph # (Auto) 0.72 L Lymphocytes % RBC Morphology Anisocytosis D-Dimer 0.72 H Sodium Carbon Dioxide 20 L Glucose 245 H Hemoglobin A1c Calcium 8.2 L Phosphorus Ferritin 1380.0 H Lactate Dehydrogenase C-Reactive Protein Albumin Procalcitonin 11/28/20 11/28/20 11/27/20 05:05 05:04 05:02 WBC Hct RDW MPV Neut % (Auto) Lymph % (Auto) Lymph # (Auto) Lymphocytes % RBC Morphology Anisocytosis D-Dimer Sodium Carbon Dioxide 20 L Glucose 241 H Hemoglobin A1c Calcium 8.3 L Phosphorus Ferritin Lactate Dehydrogenase 396 H C-Reactive Protein 6.80 H Albumin 3.1 L Procalcitonin 0.21 H 0.26 H 11/27/20 11/27/20 11/27/20 05:02 05:02 05:02 WBC 3.1 L Hct 40.4 L RDW MPV 11.8 H Neut % (Auto) Lymph % (Auto) Lymph # (Auto) Lymphocytes % 8 L RBC Morphology Abnormal A Anisocytosis Few A D-Dimer Sodium Carbon Dioxide 16 L Glucose 281 H Hemoglobin A1c Calcium 7.9 L Phosphorus 2.2 L Ferritin Lactate Dehydrogenase 405 H C-Reactive Protein 11.40 H Albumin 3.0 L Procalcitonin 11/26/20 11/26/20 11/26/20 21:08 15:52 15:52 WBC Hct RDW MPV Neut % (Auto) Lymph % (Auto) Lymph # (Auto) Lymphocytes % RBC Morphology Anisocytosis D-Dimer Sodium Carbon Dioxide Glucose Hemoglobin A1c 12.4 H Calcium Phosphorus Ferritin 1120.0 H Lactate Dehydrogenase C-Reactive Protein 11.60 H Albumin Procalcitonin 0.32 H 11/26/20 11/26/20 11/26/20 15:52 15:52 15:52 WBC 3.7 L Hct RDW 14.6 H MPV 11.5 H Neut % (Auto) Lymph % (Auto) Lymph # (Auto) 0.62 L Lymphocytes % RBC Morphology Anisocytosis D-Dimer 1.45 H Sodium 131 L Carbon Dioxide 19 L Glucose 424 H Hemoglobin A1c Calcium 8.1 L Phosphorus Ferritin Lactate Dehydrogenase C-Reactive Protein Albumin Procalcitonin Meds: Medications Acetaminophen (Acetaminophen 325 Mg Tablet) 650 mg PO Q6HP PRN PRN Reason: PAIN/FEVER > 101 Albuterol/Ipratropium (Ipratropium/Albuterol 3 Ml Ampul.Neb) 3 ml NEB Q4HP PRN PRN Reason: Shortness Of Breath Aspirin (Aspirin 81 Mg Tab.Chew) 81 mg PO DAILY [facility] Atorvastatin Calcium (Atorvastatin 40 Mg Tablet) 40 mg PO QDAY [facility] Ceftriaxone Sodium (Ceftriaxone 1 Gm Vial) 1 gm IV Q24H [facility]; Protocol Dexamethasone (Dexamethasone 4 Mg Tablet) 6 mg PO DAILY [facility] Enoxaparin Sodium (Enoxaparin 120 Mg/0.8 Ml Syringe) 120 mg SQ BID [facility] Furosemide (Furosemide 20 Mg Tablet) 20 mg PO BID [facility] Azithromycin 500 mg/ Dextrose 250 mls @ 250 mls/hr IV Q24H [facility]; Protocol Stop: 11/29/20 10:59 Magnesium Sulfate (Magnesium Sulfate) 2 gm in 50 mls @ 50 mls/hr IV UD PRN PRN Reason: Magnesium </= 1.6 REMDESIVIR 100 mg/ Sodium (Chloride) 250 mls @ 500 mls/hr IV Q24H [facility] Stop: 11/30/20 14:29 Last Admin: 11/28/20 14:19 Dose: 500 mls/hr Documented by: Potassium Chloride 40 meq/ (Dextrose) 520 mls @ 130 mls/hr IV UD PRN PRN Reason: Potassium < 3 Insulin Glargine (Insulin Glargine, Human 1 Unit/0.01 Ml) 80 unit SQ BID [facility] Insulin Human Lispro (Insulin Lispro 1 Unit/0.01 Ml Unit) 0 unit SQ ACHS [facility]; Protocol Lisinopril (Lisinopril 20 Mg Tablet) 40 mg PO DAILY [facility] Nateglinide (Nateglinide 120 Mg Tablet) 60 mg PO TIDAC [facility] Ondansetron HCl (Ondansetron 4 Mg/2 Ml Vial) 4 mg IV Q4HP PRN PRN Reason: Nausea And Vomiting Pantoprazole Sodium (Pantoprazole 40 Mg Tablet) 40 mg PO QAMAC [facility] Empagliflozin [ Jardiance] 25 Mg Tablet 1 dose PO QDAY [facility] Nebivolol [Bystolic] (20 Mg Tablet) 1 dose PO QDAY [facility] Polyethylene Glycol (Polyethylene Glycol 3350 17 Gm Packet) 17 gm PO DAILYP PRN PRN Reason: Constipation Potassium Chloride (Potassium Chloride 20 Meq Tablet) 40 meq PO UD PRN PRN Reason: Potssium is 3-3.5 Potassium Chloride (Potassium Chloride 20 Meq Tablet) 40 meq PO UD PRN PRN Reason: Potassium < 3 Senna (Sennosides 1 Tablet) 2 tab PO DAILYP PRN PRN Reason: Constipation Sodium Chloride (0.9 % Sodium Chloride 10 Ml Syringe) 10 ml IV Q8 [facility] Last Admin: 11/28/20 14:19 Dose: 10 ml Documented by: A/P Assessment and plan (1) Pneumonia due to COVID-19 virus: Status: Acute (2) GERD (gastroesophageal reflux disease): Status: Chronic (3) Type 2 diabetes mellitus with hyperglycemia: Status: Chronic (4) Mixed hyperlipidemia: Status: Chronic Narrative A/P Narrative: Assessment and Plans: 1. CoVID pneumonia: Transfer to inpatient PCU with telemetry Isolation: airborne and contact Vapotherm Proning 16 hours per day Remdesivir Dexamethasone Lasix Lovenox Rocephin Zithromax Daily inflammatory markers cbc w/ auto diff in the morning to trend WBC 2. T2DM: HgA1c 12.4 Lantus 80 unit BID Lispro high dose SSI AC HS Jardiance Accu Chek AC HS Hypoglycemia protocol Diabetic diet 3. Essential HTN: Currently normotensive Lasix Lisinopril NEbivolol 4. GERD: Continue PPI from home regimen GI ppx: Continue PPI from home regimen DVT ppx: Lovenox 1mg/kg BID Code status: Full Prognosis: guarded Disposition: inpatient PCU Time Spent With Patient Time: Total time spent is greater than 50% in coordination of care (as documented) at patient's floor/unit and/or counseling patient: Total time spent with greater than 50% in coordination of care (as documented) at patient's floor/unit and/or counseling patient:: 25 - 35 minutes
[2020-11-28] MEDS ORDERED: INSULIN LISPRO 1 UNIT/0.01 ML UNIT SQ SCH (17:00)
[2020-11-28] MEDS: ENOXAPARIN 120 MG/0.8 ML SYRINGE SQ SCH (21:49)
[2020-11-28] MEDS ORDERED: INSULIN LISPRO 1 UNIT/0.01 ML UNIT SQ ONE (21:54)
[2020-11-29] MEDS: 0.9 % SODIUM CHLORIDE 10 ML SYRINGE IV SCH ×3 (05:01→21:27)
[2020-11-29 06:57] LABS: Basophils # (Auto) 0.01 K/mcL (0.00-0.20); Basophils % (Auto) 0.1 % (0.0-2.0); Eosinophils # (Auto) 0 K/mcL (0.00-0.70); Eosinophils % (Auto) 0 % (0.0-7.0); Hematocrit 41.1 % (41.0-55.0); Hemoglobin 13.3 g/dL (13.5-16.5); Lymphocytes % (Auto) 7.2 % (15.0-49.0); Mean Cell Volume 89.9 fL (80.0-100.0); Mean Corpuscular HGB Conc 32.4 g/dL (31.0-36.0); Mean Platelet Volume 11.5 fL (7.4-10.4); Monocytes # (Auto) 0.74 K/mcL (0.10-0.90); Monocytes % (Auto) 8.9 % (1.0-12.0); Neutrophils % (Auto) 83.8 % (38.0-78.0); Platelet Count 216 K/mcL (140-440); RBC 4.57 M/mcL (4.50-5.90); WBC 8.4 K/mcL (4.5-11.0)
[2020-11-29 07:37] LABS: ALT/SGPT 15 U/L (<40); AST/SGOT 18 U/L (<40); Albumin 2.8 gm/dL (3.2-5.2); Alkaline Phosphatase 72 U/L (39-117); Bilirubin,Total 0.3 mg/dL (0.1-1.0); Blood Urea Nitrogen 18 mg/dL (8-23); Calcium 7.9 mg/dL (8.6-10.4); Carbon Dioxide 22 mmol/L (22-30); Chloride 106 mmol/L (96-108); Globulin 2.9 gm/dL (2.2-3.7); Glomerular Filtration Rate 95; Glucose 256 mg/dL (70-105)
[2020-11-29] MEDS: NATEGLINIDE 120 MG TABLET PO SCH ×3 (07:43→17:47)
[2020-11-29] MEDS: PANTOPRAZOLE 40 MG TABLET PO SCH (07:43)
[2020-11-29] MEDS: ENOXAPARIN 120 MG/0.8 ML SYRINGE SQ SCH ×2 (09:53→21:26)
[2020-11-29] MEDS: DEXAMETHASONE 4 MG TABLET PO SCH (09:53)
[2020-11-29] MEDS: LISINOPRIL 20 MG TABLET PO SCH (09:54)
[2020-11-29] MEDS: ASPIRIN 81 MG TAB.CHEW PO SCH (09:54)
[2020-11-29] MEDS: ATORVASTATIN 40 MG TABLET PO SCH (09:54)
[2020-11-29] MEDS: INSULIN LISPRO 1 UNIT/0.01 ML UNIT SQ SCH ×4 (09:54→21:27)
[2020-11-29] MEDS: FUROSEMIDE 20 MG TABLET PO SCH ×2 (09:54→21:28)
[2020-11-29] MEDS: INSULIN GLARGINE, HUMAN 1 UNIT/0.01 ML SQ SCH ×2 (09:55→21:27)
[2020-11-29] MEDS ORDERED: AZITHROMYCIN 500 MG in DEXTROSE 5% IN WATER 250 ML IV SCH (10:00)
[2020-11-29] MEDS: Empagliflozin [Jardiance] 25 mg tablet PO SCH (10:27)
[2020-11-29] MEDS: NEBIVOLOL 20 MG PO SCH (10:27)
[2020-11-29] MEDS: cefTRIAXone 1 GM VIAL IV SCH (10:39)
--- NOTE | 2020-11-29 11:30 | Internal Med Progress Note ---
SUBJECTIVE Subjective Patient information: Note initiated : 11/29/20 at 11:27 am Service Date, if different from initiated Date: [] Patient: Jennifer Luu a 65 y/o M admitted on 11/26/20 for shortness of breath, body aches, fatigue. Chief Complaint: [CoVID pneumonia] Interval history: History of present illness: Mr. Luu is a 64 year old M History of diabetes hypertension CAD who has been feeling ill for about a week and started with sore throat body aches and fevers per day fatigue shortness of breath he has a cough that is mildly productive. Shortness of breath has been worsening a week and fatigue has been worsening. Presented to urgent care today and then sent to the ER because he was hypoxic in the mid 80s. Covid test was positive. Chest x-ray with bilateral infiltrates. He is on 3 to 4 L nasal cannula at this time. Denies chest pain. 11/28: Afebrile overnight. Been on Vapotherm. Blood cultures no growth to date. Patient is c/o shortness of breath, moderate. He is c/o nonproductive cough as well as respiratory wheezing. He denies any chest pain. He denies any fever or chills or sweating. 11/29: Afebrile overnight. Been on Vapotherm. Blood cultures no growth to date. Patient is c/o shortness of breath, mild and improving. He is c/o productive cough with brown sputum. He denies any respiratory wheezing. He denies any chest pain. He denies any fever or chills or sweating. Constitutional Vitals: Vital Signs Temp Pulse Resp BP Pulse Ox 36.6 C 71 22 139/82 93 11/29/20 08:01 11/29/20 11:25 11/29/20 11:25 11/29/20 08:01 11/29/20 11:25 Period Temp Pulse Resp BP Sys/Uriostegui Pulse Ox Last 24 Hr 36.2 C-36.6 C 53-108 14-28 107-157/49-95 83-96 Intake and Output 11/28/20 11/29/20 11/29/20 21:59 05:59 13:59 Intake Total 730 Output Total 750 900 Balance -20 -900 Weight 116.12 kg Intake & Output: Intake & Output 08/01/1011/29/20 11/29/20 21:59 05:59 13:59 Intake Total 730 Output Total 750 900 - Weight 116.12 kg Intake: IV 250 Veklury 100 mg In Sodium 250 Chloride 0.9% 250 ml @ 500 mls/ hr IV Q24H [facility] Rx#:[id number] Oral 480 Output: Void Amount 750 900 Other: Meal Dinner Percent of Meal Consumed 100% Feeding Ability Independent Urine Appearance Clear Clear Urine Color Bright Yellow Bright Yellow Urine Odor Normal Stool Size Large Stool Color Brown Stool Consistency Soft # Voids 1 # Bowel Movements 1 General appearance: cooperative and no acute distress Head Head exam: Present atraumatic and normocephalic Eye Eye exam: Present EOMI and PERRL ENT ENT exam: Present mucous membranes moist, normal exam and normal external ear exam Additional comments: Vapotherm in place Neck Neck exam: Present normal inspection; Absent lymphadenopathy, tenderness and thyromegaly Respiratory Respiratory exam: Present respiratory distress and rhonchi; Absent accessory muscle use and wheezes Cardiovascular Cardiovascular exam: Present normal rate and rhythm; Absent JVD GI/Abdominal GI/Abdominal exam: Present normal bowel sounds and soft; Absent organomegaly and tenderness Additional comments: Obese abdomen Rectal Rectal exam: Present deferred Extremities Exam Extremities exam: Present full ROM, normal capillary refill and normal inspection; Absent tenderness Neurological Exam Neurological exam: Present alert, CN II-XII intact and oriented X3; Absent motor sensory deficit Psychiatric Psychiatric exam: Present normal affect and normal mood; Absent anxious and depressed Skin Skin exam: Present dry and intact OBJ DATA Labs CBC & Chem 7: 11/29/20 05:00 11/29/20 05:00 Labs: Abnormal Lab Results 11/29/20 11/29/20 11/28/20 05:00 05:00 05:05 WBC Hgb 13.3 L Hct 40.9 L RDW MPV 11.5 H 11.5 H Neut % (Auto) 83.8 H 82.2 H Lymph % (Auto) 7.2 L 8.7 L Lymph # (Auto) 0.60 L 0.72 L Lymphocytes % RBC Morphology Anisocytosis D-Dimer Sodium Carbon Dioxide Glucose 256 H Hemoglobin A1c Calcium 7.9 L Phosphorus Ferritin Lactate Dehydrogenase C-Reactive Protein Total Protein 5.7 L Albumin 2.8 L Procalcitonin 11/28/20 11/28/20 11/28/20 05:05 05:05 05:05 WBC Hgb Hct RDW MPV Neut % (Auto) Lymph % (Auto) Lymph # (Auto) Lymphocytes % RBC Morphology Anisocytosis D-Dimer 0.72 H Sodium Carbon Dioxide 20 L 20 L Glucose 245 H 241 H Hemoglobin A1c Calcium 8.2 L 8.3 L Phosphorus Ferritin 1380.0 H Lactate Dehydrogenase 396 H C-Reactive Protein 6.80 H Total Protein Albumin 3.1 L Procalcitonin 11/28/20 11/27/20 11/27/20 05:04 05:02 05:02 WBC Hgb Hct RDW MPV Neut % (Auto) Lymph % (Auto) Lymph # (Auto) Lymphocytes % RBC Morphology Anisocytosis D-Dimer Sodium Carbon Dioxide 16 L Glucose 281 H Hemoglobin A1c Calcium 7.9 L Phosphorus 2.2 L Ferritin Lactate Dehydrogenase 405 H C-Reactive Protein Total Protein Albumin 3.0 L Procalcitonin 0.21 H 0.26 H 11/27/20 11/27/20 11/26/20 05:02 05:02 21:08 WBC 3.1 L Hgb Hct 40.4 L RDW MPV 11.8 H Neut % (Auto) Lymph % (Auto) Lymph # (Auto) Lymphocytes % 8 L RBC Morphology Abnormal A Anisocytosis Few A D-Dimer Sodium Carbon Dioxide Glucose Hemoglobin A1c 12.4 H Calcium Phosphorus Ferritin Lactate Dehydrogenase C-Reactive Protein 11.40 H Total Protein Albumin Procalcitonin 11/26/20 11/26/20 11/26/20 15:52 15:52 15:52 WBC Hgb Hct RDW MPV Neut % (Auto) Lymph % (Auto) Lymph # (Auto) Lymphocytes % RBC Morphology Anisocytosis D-Dimer 1.45 H Sodium Carbon Dioxide Glucose Hemoglobin A1c Calcium Phosphorus Ferritin 1120.0 H Lactate Dehydrogenase C-Reactive Protein 11.60 H Total Protein Albumin Procalcitonin 0.32 H 11/26/20 11/26/20 15:52 15:52 WBC 3.7 L Hgb Hct RDW 14.6 H MPV 11.5 H Neut % (Auto) Lymph % (Auto) Lymph # (Auto) 0.62 L Lymphocytes % RBC Morphology Anisocytosis D-Dimer Sodium 131 L Carbon Dioxide 19 L Glucose 424 H Hemoglobin A1c Calcium 8.1 L Phosphorus Ferritin Lactate Dehydrogenase C-Reactive Protein Total Protein Albumin Procalcitonin Meds: Medications Acetaminophen (Acetaminophen 325 Mg Tablet) 650 mg PO Q6HP PRN PRN Reason: PAIN/FEVER > 101 Albuterol/Ipratropium (Ipratropium/Albuterol 3 Ml Ampul.Neb) 3 ml NEB Q4HP PRN PRN Reason: Shortness Of Breath Aspirin (Aspirin 81 Mg Tab.Chew) 81 mg PO DAILY [facility] Last Admin: 11/29/20 09:54 Dose: 81 mg Documented by: Atorvastatin Calcium (Atorvastatin 40 Mg Tablet) 40 mg PO QDAY [facility] Last Admin: 11/29/20 09:54 Dose: 40 mg Documented by: Ceftriaxone Sodium (Ceftriaxone 1 Gm Vial) 1 gm IV Q24H [facility]; Protocol Last Admin: 11/29/20 10:39 Dose: 1 gm Documented by: Dexamethasone (Dexamethasone 4 Mg Tablet) 6 mg PO DAILY [facility] Last Admin: 11/29/20 09:53 Dose: 6 mg Documented by: Dextrose (Dextrose 50% 50 Ml Vial) 0 ml IV UD PRN PRN Reason: Hypoglycemia Diagnostic Test (Pha) (Accu-Chek 1 Each Strip) 1 each FS ACHS [facility] Last Admin: 11/29/20 07:44 Dose: 1 each Documented by: Enoxaparin Sodium (Enoxaparin 120 Mg/0.8 Ml Syringe) 120 mg SQ BID [facility] Last Admin: 11/29/20 09:53 Dose: 120 mg Documented by: Furosemide (Furosemide 20 Mg Tablet) 20 mg PO BID [facility] Last Admin: 11/29/20 09:54 Dose: 20 mg Documented by: Glucose (Dextrose 31 Gm Oral.Susp) 15 gm PO PRN PRN PRN Reason: Hypoglycemia Magnesium Sulfate (Magnesium Sulfate) 2 gm in 50 mls @ 50 mls/hr IV UD PRN PRN Reason: Magnesium </= 1.6 REMDESIVIR 100 mg/ Sodium (Chloride) 250 mls @ 500 mls/hr IV Q24H [facility] Stop: 11/30/20 14:29 Last Infusion: 11/28/20 15:09 Dose: Infused Documented by: Potassium Chloride 40 meq/ (Dextrose) 520 mls @ 130 mls/hr IV UD PRN PRN Reason: Potassium < 3 Insulin Glargine (Insulin Glargine, Human 1 Unit/0.01 Ml) 80 unit SQ BID [facility] Last Admin: 11/29/20 09:55 Dose: 80 unit Documented by: Insulin Human Lispro (Insulin Lispro 1 Unit/0.01 Ml Unit) 0 unit SQ [facility]; Protocol Last Admin: 11/29/20 09:54 Dose: 18 unit Documented by: Lisinopril (Lisinopril 20 Mg Tablet) 40 mg PO DAILY [facility] Last Admin: 11/29/20 09:54 Dose: 40 mg Documented by: Nateglinide (Nateglinide 120 Mg Tablet) 60 mg PO TIDAC [facility] Last Admin: 11/29/20 07:43 Dose: 60 mg Documented by: Ondansetron HCl (Ondansetron 4 Mg/2 Ml Vial) 4 mg IV Q4HP PRN PRN Reason: Nausea And Vomiting Pantoprazole Sodium (Pantoprazole 40 Mg Tablet) 40 mg PO QAMAC [facility] Last Admin: 11/29/20 07:43 Dose: 40 mg Documented by: Empagliflozin [ Jardiance] 25 Mg Tablet 1 dose PO QDAY [facility] Last Admin: 11/29/20 10:27 Dose: Not Given Documented by: Nebivolol [Bystolic] (20 Mg Tablet) 1 dose PO QDAY [facility] Last Admin: 11/29/20 10:27 Dose: Not Given Documented by: Polyethylene Glycol (Polyethylene Glycol 3350 17 Gm Packet) 17 gm PO DAILYP PRN PRN Reason: Constipation Potassium Chloride (Potassium Chloride 20 Meq Tablet) 40 meq PO UD PRN PRN Reason: Potssium is 3-3.5 Potassium Chloride (Potassium Chloride 20 Meq Tablet) 40 meq PO UD PRN PRN Reason: Potassium < 3 Senna (Sennosides 1 Tablet) 2 tab PO DAILYP PRN PRN Reason: Constipation Sodium Chloride (0.9 % Sodium Chloride 10 Ml Syringe) 10 ml IV Q8 [facility] Last Admin: 11/29/20 05:01 Dose: 10 ml Documented by: A/P Assessment and plan (1) Pneumonia due to COVID-19 virus: Status: Acute (2) GERD (gastroesophageal reflux disease): Status: Chronic (3) Type 2 diabetes mellitus with hyperglycemia: Status: Chronic (4) Mixed hyperlipidemia: Status: Chronic Narrative A/P Narrative: Assessment and Plans: 1. CoVID pneumonia: Stays in inpatient PCU with telemetry Isolation: airborne and contact Vapotherm currently at 60L and FiO2 50%; BiPAP stands by Proning 16 hours per day Remdesivir Dexamethasone Lasix Lovenox Rocephin Zithromax Daily inflammatory markers cbc w/ auto diff in the morning to trend WBC 2. T2DM: HgA1c 12.4 Lantus 80 unit BID Lispro high dose SSI AC HS Jardiance Accu Chek AC HS Hypoglycemia protocol Diabetic diet 3. Essential HTN: Currently normotensive Lasix Lisinopril NEbivolol 4. GERD: Continue PPI from home regimen GI ppx: Continue PPI from home regimen DVT ppx: Lovenox 1mg/kg BID Code status: Full Prognosis: guarded Disposition: inpatient PCU Time Spent With Patient Time: Total time spent is greater than 50% in coordination of care (as document ed) at patient's floor/unit and/or counseling patient: Total time spent with greater than 50% in coordination of care (as documented) at patient's floor/unit and/or counseling patient:: 25 - 35 minutes
[2020-11-29] MEDS: REMDESIVIR 100 MG in 0.9 % SODIUM CHLORIDE 250 ML IV SCH (14:10)
[2020-11-30] MEDS: 0.9 % SODIUM CHLORIDE 10 ML SYRINGE IV SCH ×3 (05:04→21:01)
[2020-11-30 06:50] LABS: Basophils # (Auto) 0.02 K/mcL (0.00-0.20); Basophils % (Auto) 0.3 % (0.0-2.0); Eosinophils # (Auto) 0 K/mcL (0.00-0.70); Eosinophils % (Auto) 0 % (0.0-7.0); Hematocrit 38.9 % (41.0-55.0); Hemoglobin 13.2 g/dL (13.5-16.5); Lymphocytes # (Auto) 0.72 K/mcL (1.50-4.80); Lymphocytes % (Auto) 10.9 % (15.0-49.0); Mean Corpuscular HGB Conc 33.9 g/dL (31.0-36.0); Mean Platelet Volume 10.9 fL (7.4-10.4); Monocytes # (Auto) 0.62 K/mcL (0.10-0.90); Monocytes % (Auto) 9.4 % (1.0-12.0); Neutrophils % (Auto) 79.4 % (38.0-78.0); Platelet Count 230 K/mcL (140-440); RBC 4.42 M/mcL (4.50-5.90); Red Cell Distribution Width 14.1 % (11.5-14.5); WBC 6.6 K/mcL (4.5-11.0)
[2020-11-30] MEDS: PANTOPRAZOLE 40 MG TABLET PO SCH (06:59)
[2020-11-30] MEDS: NATEGLINIDE 120 MG TABLET PO SCH ×3 (06:59→16:39)
[2020-11-30 07:14] LABS: ALT/SGPT 14 U/L (<40); AST/SGOT 15 U/L (<40); Albumin 2.8 gm/dL (3.2-5.2); Albumin/Globulin Ratio 1.1 (1.0-2.3); Alkaline Phosphatase 71 U/L (39-117); Bilirubin,Total 0.4 mg/dL (0.1-1.0); Blood Urea Nitrogen 16 mg/dL (8-23); Carbon Dioxide 21 mmol/L (22-30); Chloride 104 mmol/L (96-108); Globulin 2.6 gm/dL (2.2-3.7); Glomerular Filtration Rate 107; Glucose 236 mg/dL (70-105)
[2020-11-30] MEDS: INSULIN GLARGINE, HUMAN 1 UNIT/0.01 ML SQ SCH ×2 (08:20→21:04)
[2020-11-30] MEDS: INSULIN LISPRO 1 UNIT/0.01 ML UNIT SQ SCH ×4 (08:20→21:00)
[2020-11-30] MEDS: LISINOPRIL 20 MG TABLET PO SCH (08:20)
[2020-11-30] MEDS: ENOXAPARIN 120 MG/0.8 ML SYRINGE SQ SCH ×2 (08:20→21:03)
[2020-11-30] MEDS: cefTRIAXone 1 GM VIAL IV SCH (08:21)
[2020-11-30] MEDS: ASPIRIN 81 MG TAB.CHEW PO SCH (08:21)
[2020-11-30] MEDS: FUROSEMIDE 20 MG TABLET PO SCH ×2 (08:21→21:00)
[2020-11-30] MEDS: ATORVASTATIN 40 MG TABLET PO SCH (08:21)
[2020-11-30] MEDS: DEXAMETHASONE 4 MG TABLET PO SCH (08:21)
[2020-11-30] MEDS: NEBIVOLOL 20 MG PO SCH (10:54)
[2020-11-30] MEDS: Empagliflozin [Jardiance] 25 mg tablet PO SCH (11:29)
--- NOTE | 2020-11-30 13:33 | Internal Med Progress Note ---
SUBJECTIVE Subjective Patient information: Note initiated : 11/30/20 at 1:31 pm Service Date, if different from initiated Date: [] Patient: Jennifer Luu a 65 y/o M admitted on 11/26/20 for shortness of breath, body aches, fatigue. Chief Complaint: [CoVID pneumonia] Interval history: History of present illness: Mr. Luu is a 64 year old M History of diabetes hypertension CAD who has been feeling ill for about a week and started with sore throat body aches and fevers per day fatigue shortness of breath he has a cough that is mildly productive. Shortness of breath has been worsening a week and fatigue has been worsening. Presented to urgent care today and then sent to the ER because he was hypoxic in the mid 80s. Covid test was positive. Chest x-ray with bilateral infiltrates. He is on 3 to 4 L nasal cannula at this time. Denies chest pain. 11/28: Afebrile overnight. Been on Vapotherm. Blood cultures no growth to date. Patient is c/o shortness of breath, moderate. He is c/o nonproductive cough as well as respiratory wheezing. He denies any chest pain. He denies any fever or chills or sweating. 11/29: Afebrile overnight. Been on Vapotherm. Blood cultures no growth to date. Patient is c/o shortness of breath, mild and improving. He is c/o productive cough with brown sputum. He denies any respiratory wheezing. He denies any chest pain. He denies any fever or chills or sweating. 11/30: afebrile overnight. Switched to BiPAP overnight with FiO2 50% and IPAP EPAP 03/29. Been prone overnight. Patient is c/o moderate hortness of breath. c/o nonproductive cough. Denies wheezing. Denies chest pain. Denies fever or chills. Denies anxiety. Constitutional Vitals: Vital Signs Temp Pulse Resp BP Pulse Ox 36.7 C 74 22 109/52 95 11/30/20 08:01 11/30/20 12:04 11/30/20 12:04 11/30/20 12:01 11/30/20 12:04 Period Temp Pulse Resp BP Sys/Uriostegui Pulse Ox Last 24 Hr 36.2 C-36.8 C 50-88 12-24 109-150/52-88 90-98 Intake and Output 11/29/20 11/30/20 11/30/20 21:59 05:59 13:59 Intake Total 1666 400 325 Output Total 1300 500 750 Balance 366 -100 -425 Weight 117.707 kg Intake & Output: Intake & Output 11/29/20 11/30/20 11/30/20 21:59 05:59 13:59 Intake Total 1666 400 325 Output Total 1300 500 750 Balance 366 -100 -425 Weight 117.707 kg Intake: IV 250 Veklury 100 mg In Sodium 250 Chloride 0.9% 250 ml @ 500 mls/ hr IV Q24H ON LICENSE OF [facility] Rx#:[id number] Oral 1416 400 325 Output: Void Amount 1300 500 750 Other: Meal Dinner Nourishment/Supplement Percent of Meal Consumed 100% 100% Feeding Ability Independent Urine Color Bright Yellow Stool Size Large Stool Color Brown Green Stool Consistency Soft Formed # Voids 1 # Bowel Movements 1 General appearance: cooperative and no acute distress Head Head exam: Present atraumatic and normocephalic Eye Eye exam: Present EOMI and PERRL ENT ENT exam: Present mucous membranes moist, normal exam and normal external ear exam Additional comments: BiPAP in place Neck Neck exam: Present normal inspection; Absent lymphadenopathy, tenderness and thyromegaly Respiratory Respiratory exam: Present rhonchi; Absent accessory muscle use, respiratory distress and wheezes Cardiovascular Cardiovascular exam: Present normal rate and rhythm; Absent JVD GI/Abdominal GI/Abdominal exam: Present normal bowel sounds and soft; Absent organomegaly and tenderness Additional comments: obese abdomen Rectal Rectal exam: Present deferred Extremities Exam Extremities exam: Present full ROM, normal capillary refill and normal inspection; Absent tenderness Neurological Exam Neurological exam: Present alert, CN II-XII intact and oriented X3; Absent motor sensory deficit Psychiatric Psychiatric exam: Present normal affect and normal mood; Absent anxious and depressed Skin Skin exam: Present dry and intact OBJ DATA Labs CBC & Chem 7: 11/30/20 05:21 11/30/20 05:21 Labs: Abnormal Lab Results 11/30/20 11/30/20 11/29/20 05:21 05:21 05:00 RBC 4.42 L Hgb 13.2 L Hct 38.9 L MPV 10.9 H Neut % (Auto) 79.4 H Lymph % (Auto) 10.9 L Lymph # (Auto) 0.72 L D-Dimer Carbon Dioxide 21 L Creatinine 0.6 L Glucose 236 H 256 H Calcium 8.0 L 7.9 L Ferritin Lactate Dehydrogenase C-Reactive Protein Total Protein 5.4 L 5.7 L Albumin 2.8 L 2.8 L Procalcitonin 11/29/20 11/28/20 11/28/20 05:00 05:05 05:05 RBC Hgb 13.3 L Hct 40.9 L MPV 11.5 H 11.5 H Neut % (Auto) 83.8 H 82.2 H Lymph % (Auto) 7.2 L 8.7 L Lymph # (Auto) 0.60 L 0.72 L D-Dimer Carbon Dioxide 20 L Creatinine Glucose 245 H Calcium 8.2 L Ferritin 1380.0 H Lactate Dehydrogenase C-Reactive Protein Total Protein Albumin Procalcitonin 11/28/20 11/28/20 11/28/20 05:05 05:05 05:04 RBC Hgb Hct MPV Neut % (Auto) Lymph % (Auto) Lymph # (Auto) D-Dimer 0.72 H Carbon Dioxide 20 L Creatinine Glucose 241 H Calcium 8.3 L Ferritin Lactate Dehydrogenase 396 H C-Reactive Protein 6.80 H Total Protein Albumin 3.1 L Procalcitonin 0.21 H Meds: Medications Acetaminophen (Acetaminophen 325 Mg Tablet) 650 mg PO Q6HP PRN PRN Reason: PAIN/FEVER > 101 Albuterol/Ipratropium (Ipratropium/Albuterol 3 Ml Ampul.Neb) 3 ml NEB Q4HP PRN PRN Reason: Shortness Of Breath Last Admin: 11/30/20 11:15 Dose: 3 ml Documented by: Aspirin (Aspirin 81 Mg Tab.Chew) 81 mg PO DAILY [facility] OF [facility] Last Admin: 11/30/20 08:21 Dose: 81 mg Documented by: Atorvastatin Calcium (Atorvastatin 40 Mg Tablet) 40 mg PO QDAY ON [facility] OF [facility] Last Admin: 11/30/20 08:21 Dose: 40 mg Documented by: Ceftriaxone Sodium (Ceftriaxone 1 Gm Vial) 1 gm IV Q24H ON LICENSE OF [facility]; Protocol Last Admin: 11/30/20 08:21 Dose: 1 gm Documented by: Dexamethasone (Dexamethasone 4 Mg Tablet) 6 mg PO DAILY [facility] Last Admin: 11/30/20 08:21 Dose: 6 mg Documented by: Dextrose (Dextrose 50% 50 Ml Vial) 0 ml IV UD PRN PRN Reason: Hypoglycemia Diagnostic Test (Pha) (Accu-Chek 1 Each Strip) 1 each FS [facility] Last Admin: 11/30/20 11:29 Dose: 1 each Documented by: Enoxaparin Sodium (Enoxaparin 120 Mg/0.8 Ml Syringe) 120 mg SQ BID [facility] OF [facility] Last Admin: 11/30/20 08:20 Dose: 120 mg Documented by: Furosemide (Furosemide 20 Mg Tablet) 20 mg PO BID [facility] Last Admin: 11/30/20 08:21 Dose: 20 mg Documented by: Glucose (Dextrose 31 Gm Oral.Susp) 15 gm PO PRN PRN PRN Reason: Hypoglycemia Magnesium Sulfate (Magnesium Sulfate) 2 gm in 50 mls @ 50 mls/hr IV UD PRN PRN Reason: Magnesium </= 1.6 REMDESIVIR 100 mg/ Sodium (Chloride) 250 mls @ 500 mls/hr IV Q24H ON [facility] OF [facility] Stop: 11/30/20 14:29 Last Infusion: 11/29/20 15:20 Dose: Infused Documented by: Potassium Chloride 40 meq/ (Dextrose) 520 mls @ 130 mls/hr IV UD PRN PRN Reason: Potassium < 3 Insulin Glargine (Insulin Glargine, Human 1 Unit/0.01 Ml) 80 unit SQ BID [facility] Last Admin: 11/30/20 08:20 Dose: 80 unit Documented by: Insulin Human Lispro (Insulin Lispro 1 Unit/0.01 Ml Unit) 0 unit SQ [facility]; Protocol Last Admin: 11/30/20 11:30 Dose: 6 unit Documented by: Lisinopril (Lisinopril 20 Mg Tablet) 40 mg PO DAILY [facility] Last Admin: 11/30/20 08:20 Dose: 40 mg Documented by: Nateglinide (Nateglinide 120 Mg Tablet) 60 mg PO TIDAC ON [facility] OF [facility] Last Admin: 11/30/20 11:53 Dose: 60 mg Documented by: Ondansetron HCl (Ondansetron 4 Mg/2 Ml Vial) 4 mg IV Q4HP PRN PRN Reason: Nausea And Vomiting Pantoprazole Sodium (Pantoprazole 40 Mg Tablet) 40 mg PO QAMAC ON [facility] OF [facility] Last Admin: 11/30/20 06:59 Dose: 40 mg Documented by: Empagliflozin [ Jardiance] 25 Mg Tablet 1 dose PO QDAY [facility] OF [facility] Last Admin: 11/30/20 11:29 Dose: 1 dose Documented by: Nebivolol [Bystolic] (20 Mg Tablet) 1 dose PO QDAY ON [facility] OF [facility] Last Admin: 11/30/20 10:54 Dose: Not Given Documented by: Polyethylene Glycol (Polyethylene Glycol 3350 17 Gm Packet) 17 gm PO DAILYP PRN PRN Reason: Constipation Potassium Chloride (Potassium Chloride 20 Meq Tablet) 40 meq PO UD PRN PRN Reason: Potssium is 3-3.5 Potassium Chloride (Potassium Chloride 20 Meq Tablet) 40 meq PO UD PRN PRN Reason: Potassium < 3 Senna (Sennosides 1 Tablet) 2 tab PO DAILYP PRN PRN Reason: Constipation Sodium Chloride (0.9 % Sodium Chloride 10 Ml Syringe) 10 ml IV Q8 ON [facility] OF [facility] Last Admin: 11/30/20 05:04 Dose: 10 ml Documented by: A/P Assessment and plan (1) Pneumonia due to COVID-19 virus: Status: Acute (2) GERD (gastroesophageal reflux disease): Status: Chronic (3) Type 2 diabetes mellitus with hyperglycemia: Status: Chronic (4) Mixed hyperlipidemia: Status: Chronic Narrative A/P Narrative: Assessment and Plans: 1. CoVID pneumonia: Stays in inpatient PCU with telemetry Isolation: airborne and contact Switch from BiPAP to CPAP with FiO2 60%, pressure setting at 10. Repeat ABG at 1500 this afternoon. Proning 16 hours per day Remdesivir Dexamethasone Lasix Lovenox Rocephin Zithromax Daily inflammatory markers cbc w/ auto diff in the morning to trend WBC 2. T2DM: HgA1c 12.4 Lantus 80 unit BID Lispro high dose SSI AC HS Jardiance Accu Chek AC HS Hypoglycemia protocol Diabetic diet 3. Essential HTN: Currently normotensive Lasix Lisinopril NEbivolol 4. GERD: Continue PPI from home regimen GI ppx: Continue PPI from home regimen DVT ppx: Lovenox 1mg/kg BID Code status: Full Prognosis: guarded Disposition: inpatient PCU Time Spent With Patient Time: Total time spent is greater than 50% in coordination of care (as documented) at patient's floor/unit and/or counseling patient: Total time spent with greater than 50% in coordination of care (as documented) at patient's floor/unit and/or counseling patient:: 25 - 35 minutes
[2020-11-30] MEDS: REMDESIVIR 100 MG in 0.9 % SODIUM CHLORIDE 250 ML IV SCH (13:52)
[2020-12-01] MEDS: 0.9 % SODIUM CHLORIDE 10 ML SYRINGE IV SCH ×3 (05:08→21:03)
[2020-12-01 06:52] LABS: Basophils # (Auto) 0.02 K/mcL (0.00-0.20); Basophils % (Auto) 0.3 % (0.0-2.0); Eosinophils # (Auto) 0 K/mcL (0.00-0.70); Eosinophils % (Auto) 0 % (0.0-7.0); Hematocrit 41.4 % (41.0-55.0); Hemoglobin 13.2 g/dL (13.5-16.5); Lymphocytes % (Auto) 10.7 % (15.0-49.0); Mean Cell Volume 91.4 fL (80.0-100.0); Mean Corpuscular HGB Conc 31.9 g/dL (31.0-36.0); Monocytes # (Auto) 0.61 K/mcL (0.10-0.90); Monocytes % (Auto) 8.1 % (1.0-12.0); Neutrophils % (Auto) 80.9 % (38.0-78.0); Platelet Count 241 K/mcL (140-440); RBC 4.53 M/mcL (4.50-5.90); WBC 7.5 K/mcL (4.5-11.0)
[2020-12-01 07:20] LABS: ALT/SGPT 13 U/L (<40); AST/SGOT 16 U/L (<40); Albumin 2.6 gm/dL (3.2-5.2); Albumin/Globulin Ratio 0.9 (1.0-2.3); Alkaline Phosphatase 65 U/L (39-117); Bilirubin,Total 0.3 mg/dL (0.1-1.0); Blood Urea Nitrogen 16 mg/dL (8-23); Calcium 8.5 mg/dL (8.6-10.4); Carbon Dioxide 21 mmol/L (22-30); Chloride 107 mmol/L (96-108); Globulin 2.9 gm/dL (2.2-3.7); Glomerular Filtration Rate 100; Glucose 134 mg/dL (70-105)
[2020-12-01] MEDS: NATEGLINIDE 120 MG TABLET PO SCH ×4 (07:48→17:34)
[2020-12-01] MEDS: PANTOPRAZOLE 40 MG TABLET PO SCH (07:48)
[2020-12-01] MEDS: INSULIN LISPRO 1 UNIT/0.01 ML UNIT SQ SCH ×4 (08:25→20:43)
--- NOTE | 2020-12-01 08:52 | Internal Med Progress Note ---
SUBJECTIVE Subjective Patient information: Note initiated : 12/01/20 at 8:47 am Service Date, if different from initiated Date: [] Patient: Jennifer Luu a 65 y/o M admitted on 11/26/20 for shortness of breath, body aches, fatigue. Chief Complaint: [CoVID pneumonia] Interval history: History of present illness: Mr. Luu is a 64 year old M History of diabetes hypertension CAD who has been feeling ill for about a week and started with sore throat body aches and fevers per day fatigue shortness of breath he has a cough that is mildly productive. Shortness of breath has been worsening a week and fatigue has been worsening. Presented to urgent care today and then sent to the ER because he was hypoxic in the mid 80s. Covid test was positive. Chest x-ray with bilateral infiltrates. He is on 3 to 4 L nasal cannula at this time. Denies chest pain. 11/28: Afebrile overnight. Been on Vapotherm. Blood cultures no growth to date. Patient is c/o shortness of breath, moderate. He is c/o nonproductive cough as well as respiratory wheezing. He denies any chest pain. He denies any fever or chills or sweating. 11/29: Afebrile overnight. Been on Vapotherm. Blood cultures no growth to date. Patient is c/o shortness of breath, mild and improving. He is c/o productive cough with brown sputum. He denies any respiratory wheezing. He denies any chest pain. He denies any fever or chills or sweating. 11/30: afebrile overnight. Switched to BiPAP overnight with FiO2 50% and IPAP EPAP 03/29. Been prone overnight. Patient is c/o moderate hortness of breath. c/o nonproductive cough. Denies wheezing. Denies chest pain. Denies fever or chills. Denies anxiety. 12/01: Afebrile overnight. Been tolerating partial prone. Been on CPAP FiO2 55%, pressure of 12. Improving degree of shortness of breath. c/o nonproductive cough. Denies wheezing. Denies chest pain. Denies fever or chills. Denies anxiety. Constitutional Vitals: Vital Signs Temp Pulse Resp BP Pulse Ox 36.2 C 58 L 11 L 130/77 97 12/01/20 04:01 12/01/20 08:01 12/01/20 08:01 12/01/20 08:01 12/01/20 08:01 Period Temp Pulse Resp BP Sys/Uriostegui Pulse Ox Last 24 Hr 36.2 C-36.9 C 48-102 6-29 105-142/52-77 90-99 Intake and Output 11/30/20 12/01/20 12/01/20 21:59 05:59 13:59 Intake Total 1206 720 Output Total 1325 450 350 Balance -119 270 -350 Weight 117.526 kg Intake & Output: Intake & Output 11/30/20 12/01/20 12/01/20 21:59 05:59 13:59 Intake Total 1206 720 Output Total 1325 450 350 Balance -119 270 -350 Weight 117.526 kg Intake: Nourishment/Supplement quantity 240 (ml) IV 250 Veklury 100 mg In Sodium 250 Chloride 0.9% 250 ml @ 500 mls/ hr IV Q24H [facility] Rx#:[id number] Oral 716 720 Output: Void Amount 1325 450 350 Other: Meal Nourishment/Supplement Nourishment/Supplement name Glucerna Urine Appearance Clear Clear Urine Color Dark Yellow Bright Yellow Urine Odor Normal General appearance: cooperative and no acute distress Head Head exam: Present atraumatic and normocephalic Eye Eye exam: Present EOMI and PERRL ENT ENT exam: Present mucous membranes moist, normal exam and normal external ear exam Additional comments: CPAP in place Neck Neck exam: Present normal inspection; Absent lymphadenopathy, tenderness and thyromegaly Respiratory Respiratory exam: Present rhonchi; Absent accessory muscle use, respiratory distress and wheezes Cardiovascular Cardiovascular exam: Present bradycardia; Absent JVD GI/Abdominal GI/Abdominal exam: Present normal bowel sounds and soft; Absent organomegaly and tenderness Additional comments: Obese abdomen Rectal Rectal exam: Present deferred Extremities Exam Extremities exam: Present full ROM, normal capillary refill and normal i nspection; Absent tenderness Neurological Exam Neurological exam: Present alert, CN II-XII intact and oriented X3; Absent motor sensory deficit Psychiatric Psychiatric exam: Present normal affect and normal mood; Absent anxious and depressed Skin Skin exam: Present dry and intact OBJ DATA Labs CBC & Chem 7: 12/01/20 05:13 12/01/20 05:13 Labs: Abnormal Lab Results 12/01/20 12/01/20 11/30/20 05:13 05:13 05:21 RBC Hgb 13.2 L Hct MPV 11.0 H Neut % (Auto) 80.9 H Lymph % (Auto) 10.7 L Lymph # (Auto) 0.80 L Carbon Dioxide 21 L 21 L Creatinine 0.6 L Glucose 134 H 236 H Calcium 8.5 L 8.0 L Total Protein 5.5 L 5.4 L Albumin 2.6 L 2.8 L Albumin/Globulin Ratio 0.9 L 11/30/20 11/29/20 11/29/20 05:21 05:00 05:00 RBC 4.42 L Hgb 13.2 L 13.3 L Hct 38.9 L MPV 10.9 H 11.5 H Neut % (Auto) 79.4 H 83.8 H Lymph % (Auto) 10.9 L 7.2 L Lymph # (Auto) 0.72 L 0.60 L Carbon Dioxide Creatinine Glucose 256 H Calcium 7.9 L Total Protein 5.7 L Albumin 2.8 L Albumin/Globulin Ratio Meds: Medications Acetaminophen (Acetaminophen 325 Mg Tablet) 650 mg PO Q6HP PRN PRN Reason: PAIN/FEVER > 101 Albuterol/Ipratropium (Ipratropium/Albuterol 3 Ml Ampul.Neb) 3 ml NEB Q4HP PRN PRN Reason: Shortness Of Breath Last Admin: 11/30/20 11:15 Dose: 3 ml Documented by: Aspirin (Aspirin 81 Mg Tab.Chew) 81 mg PO DAILY [facility] Last Admin: 11/30/20 08:21 Dose: 81 mg Documented by: Atorvastatin Calcium (Atorvastatin 40 Mg Tablet) 40 mg PO QDAY [facility] Last Admin: 11/30/20 08:21 Dose: 40 mg Documented by: Ceftriaxone Sodium (Ceftriaxone 1 Gm Vial) 1 gm IV Q24H [facility]; Protocol Last Admin: 11/30/20 08:21 Dose: 1 gm Documented by: Dexamethasone (Dexamethasone 4 Mg Tablet) 6 mg PO DAILY [facility] Last Admin: 11/30/20 08:21 Dose: 6 mg Documented by: Dextrose (Dextrose 50% 50 Ml Vial) 0 ml IV UD PRN PRN Reason: Hypoglycemia Diagnostic Test (Pha) (Accu-Chek 1 Each Strip) 1 each FS ACHS [facility] Last Admin: 12/01/20 08:24 Dose: 1 each Documented by: Enoxaparin Sodium (Enoxaparin 120 Mg/0.8 Ml Syringe) 120 mg SQ BID [facility] Last Admin: 11/30/20 21:03 Dose: 120 mg Documented by: Furosemide (Furosemide 20 Mg Tablet) 20 mg PO BID [facility] Last Admin: 11/30/20 21:00 Dose: Not Given Documented by: Glucose (Dextrose 31 Gm Oral.Susp) 15 gm PO PRN PRN PRN Reason: Hypoglycemia Magnesium Sulfate (Magnesium Sulfate) 2 gm in 50 mls @ 50 mls/hr IV UD PRN PRN Reason: Magnesium </= 1.6 Potassium Chloride 40 meq/ (Dextrose) 520 mls @ 130 mls/hr IV UD PRN PRN Reason: Potassium < 3 Insulin Glargine (Insulin Glargine, Human 1 Unit/0.01 Ml) 80 unit SQ BID [facility] Last Admin: 11/30/20 21:04 Dose: 80 unit Documented by: Insulin Human Lispro (Insulin Lispro 1 Unit/0.01 Ml Unit) 0 unit SQ [facility]; Protocol Last Admin: 12/01/20 08:25 Dose: Not Given Documented by: Lisinopril (Lisinopril 20 Mg Tablet) 40 mg PO DAILY [facility] Last Admin: 11/30/20 08:20 Dose: 40 mg Documented by: Nateglinide (Nateglinide 120 Mg Tablet) 60 mg PO TIDAC [facility] Last Admin: 12/01/20 07:48 Dose: 60 mg Documented by: Ondansetron HCl (Ondansetron 4 Mg/2 Ml Vial) 4 mg IV Q4HP PRN PRN Reason: Nausea And Vomiting Pantoprazole Sodium (Pantoprazole 40 Mg Tablet) 40 mg PO QAMAC [facility] Last Admin: 12/01/20 07:48 Dose: 40 mg Documented by: Empagliflozin [ Jardiance] 25 Mg Tablet 1 dose PO QDAY [facility] Last Admin: 11/30/20 11:29 Dose: 1 dose Documented by: Polyethylene Glycol (Polyethylene Glycol 3350 17 Gm Packet) 17 gm PO DAILYP PRN PRN Reason: Constipation Potassium Chloride (Potassium Chloride 20 Meq Tablet) 40 meq PO UD PRN PRN Reason: Potssium is 3-3.5 Potassium Chloride (Potassium Chloride 20 Meq Tablet) 40 meq PO UD PRN PRN Reason: Potassium < 3 Senna (Sennosides 1 Tablet) 2 tab PO DAILYP PRN PRN Reason: Constipation Sodium Chloride (0.9 % Sodium Chloride 10 Ml Syringe) 10 ml IV Q8 [facility] Last Admin: 12/01/20 05:08 Dose: 10 ml Documented by: A/P Assessment and plan (1) Pneumonia due to COVID-19 virus: Status: Acute (2) GERD (gastroesophageal reflux disease): Status: Chronic (3) Type 2 diabetes mellitus with hyperglycemia: Status: Chronic (4) Mixed hyperlipidemia: Status: Chronic Narrative A/P Narrative: Assessment and Plans: 1. CoVID pneumonia: Stays in inpatient PCU with telemetry Isolation: airborne and contact CPAP FiO2 55%, pressure support at 12. Try high flow oxygen when feeding. Proning 16 hours per day Finished 5 day course of Remdesivir Dexamethasone Lasix Lovenox Rocephin Zithromax Daily inflammatory markers cbc w/ auto diff in the morning to trend WBC Repeat CXR today 2. T2DM: HgA1c 12.4 Lantus 80 unit BID Lispro high dose SSI AC HS Jardiance Accu Chek AC HS Hypoglycemia protocol Diabetic diet 3. Essential HTN: Currently normotensive Lasix Lisinopril d/c Nebivolol given bradycardia 4. GERD: Continue PPI from home regimen GI ppx: Continue PPI from home regimen DVT ppx: Lovenox 1mg/kg BID Code status: Full Prognosis: guarded Disposition: inpatient PCU Time Spent With Patient Time: Total time spent is greater than 50% in coordination of care (as documented) at patient's floor/unit and/or counseling patient:
[2020-12-01] MEDS: LISINOPRIL 20 MG TABLET PO SCH (09:21)
[2020-12-01] MEDS: FUROSEMIDE 20 MG TABLET PO SCH ×2 (09:21→20:51)
[2020-12-01] MEDS: ENOXAPARIN 120 MG/0.8 ML SYRINGE SQ SCH ×2 (09:21→20:49)
[2020-12-01] MEDS: cefTRIAXone 1 GM VIAL IV SCH (09:21)
--- NOTE | 2020-12-01 09:21 | XRay Report ---
INDICATION: covid pna TECHNIQUE: AP portable semiupright chest x-ray COMPARISON: Previous examination dated 11/26/2020 FINDINGS: Lungs:Bilateral interstitial infiltrates consistent with covid pneumonia. These infiltrates are significantly improved since previous examination. No new focal abnormality. Heart, vascular:No significant cardiomegaly. Pulmonary vascularity is normal. No pulmonary edema or pulmonary congestion Mediastinum, maryann:No mediastinal widening. No hilar mass Pleura:No pleural fluid. No pleural-based mass or calcification. No pneumothorax or pneumomediastinum Skeletal:Negative. IMPRESSION: 1. Bilateral infiltrates consistent with covid pneumonia 2. Interval improvement since 11/26/2020 Interpreted and Authenticated by: Franklin Rivers 12/01/20
[2020-12-01] MEDS: DEXAMETHASONE 4 MG TABLET PO SCH (09:22)
[2020-12-01] MEDS: ATORVASTATIN 40 MG TABLET PO SCH (09:22)
[2020-12-01] MEDS: Empagliflozin [Jardiance] 25 mg tablet PO SCH (09:22)
[2020-12-01] MEDS: ASPIRIN 81 MG TAB.CHEW PO SCH (09:22)
[2020-12-01] MEDS: INSULIN GLARGINE, HUMAN 1 UNIT/0.01 ML SQ SCH ×2 (09:35→20:49)
[2020-12-02] MEDS: 0.9 % SODIUM CHLORIDE 10 ML SYRINGE IV SCH ×3 (05:23→21:07)
[2020-12-02 06:57] LABS: Basophils # (Auto) 0.04 K/mcL (0.00-0.20); Basophils % (Auto) 0.5 % (0.0-2.0); Eosinophils # (Auto) 0.01 K/mcL (0.00-0.70); Eosinophils % (Auto) 0.1 % (0.0-7.0); Hematocrit 40.7 % (41.0-55.0); Hemoglobin 13.1 g/dL (13.5-16.5); Lymphocytes # (Auto) 0.71 K/mcL (1.50-4.80); Lymphocytes % (Auto) 9.7 % (15.0-49.0); Mean Cell Volume 89.5 fL (80.0-100.0); Mean Corpuscular HGB Conc 32.2 g/dL (31.0-36.0); Mean Platelet Volume 11.2 fL (7.4-10.4); Monocytes # (Auto) 0.66 K/mcL (0.10-0.90); Neutrophils % (Auto) 80.7 % (38.0-78.0); Platelet Count 239 K/mcL (140-440); RBC 4.55 M/mcL (4.50-5.90); Red Cell Distribution Width 13.8 % (11.5-14.5); WBC 7.3 K/mcL (4.5-11.0)
[2020-12-02] MEDS: PANTOPRAZOLE 40 MG TABLET PO SCH (07:14)
--- NOTE | 2020-12-02 07:14 | Internal Med Progress Note ---
SUBJECTIVE Subjective Patient information: Note initiated : 12/02/20 at 7:13 am Service Date, if different from initiated Date: [] Patient: Jennifer Luu a 65 y/o M admitted on 11/26/20 for shortness of breath, body aches, fatigue. Chief Complaint: [CoVID pneumonia] Interval history: History of present illness: Mr. Luu is a 64 year old M History of diabetes hypertension CAD who has been feeling ill for about a week and started with sore throat body aches and fevers per day fatigue shortness of breath he has a cough that is mildly productive. Shortness of breath has been worsening a week and fatigue has been worsening. Presented to urgent care today and then sent to the ER because he was hypoxic in the mid 80s. Covid test was positive. Chest x-ray with bilateral infiltrates. He is on 3 to 4 L nasal cannula at this time. Denies chest pain. 11/28: Afebrile overnight. Been on Vapotherm. Blood cultures no growth to date. Patient is c/o shortness of breath, moderate. He is c/o nonproductive cough as well as respiratory wheezing. He denies any chest pain. He denies any fever or chills or sweating. 11/29: Afebrile overnight. Been on Vapotherm. Blood cultures no growth to date. Patient is c/o shortness of breath, mild and improving. He is c/o productive cough with brown sputum. He denies any respiratory wheezing. He denies any chest pain. He denies any fever or chills or sweating. 11/30: afebrile overnight. Switched to BiPAP overnight with FiO2 50% and IPAP EPAP 03/29. Been prone overnight. Patient is c/o moderate hortness of breath. c/o nonproductive cough. Denies wheezing. Denies chest pain. Denies fever or chills. Denies anxiety. 12/01: Afebrile overnight. Been tolerating partial prone. Been on CPAP FiO2 55%, pressure of 12. Improving degree of shortness of breath. c/o nonproductive cough. Denies wheezing. Denies chest pain. Denies fever or chills. Denies anxiety. 12/02: Afebrile overnight. Been tolerating partial prone. Been switched to high flow oxygen 7-9L/min. Improving degree of shortness of breath. c/o nonproductive cough. Denies wheezing. Denies chest pain. Denies fever or chills. Denies anxiety. Constitutional Vitals: Vital Signs Temp Pulse Resp BP Pulse Ox 36.6 C 59 L 16 107/69 92 12/02/20 00:29 12/02/20 06:02 12/02/20 06:01 12/02/20 06:01 12/02/20 06:02 Period Temp Pulse Resp BP Sys/Uriostegui Pulse Ox Last 24 Hr 36.2 C-36.7 C 49-83 11-25 105-133/62-77 91-99 Intake and Output 12/01/20 12/02/20 12/02/20 21:59 05:59 13:59 Intake Total 500 500 Output Total 1000 1100 Balance -500 -600 Weight 117.39 kg Intake & Output: Intake & Output 12/01/20 12/02/20 12/02/20 21:59 05:59 13:59 Intake Total 500 500 Output Total 1000 1100 Balance -500 -600 Weight 117.39 kg Intake: Oral 500 500 Output: Void Amount 1000 1100 Other: Urine Appearance Clear Clear Urine Color Pale Pale Urine Odor Normal Normal Stool Size Moderate Stool Color Brown Stool Consistency Soft Formed # Bowel Movements 1 General appearance: cooperative and no acute distress Head Head exam: Present atraumatic and normocephalic Eye Eye exam: Present EOMI and PERRL ENT ENT exam: Present mucous membranes moist, normal exam and normal external ear exam Additional comments: High flow oxygen in place. Neck Neck exam: Present normal inspection; Absent lymphadenopathy, tenderness and thyromegaly Respiratory Respiratory exam: Absent accessory muscle use, respiratory distress and wheezes Cardiovascular Cardiovascular exam: Present normal rate and rhythm; Absent JVD GI/Abdominal GI/Abdominal exam: Present normal bowel sounds and soft; Absent organomegaly and tenderness Rectal Rectal exam: Present deferred Extremities Exam Extremities exam: Present full ROM, normal capillary refill and normal inspection; Absent tenderness Neurological Exam Neurological exam: Present alert, CN II-XII intact and oriented X3; Absent motor sensory deficit Psychiatric Psychiatric exam: Present normal affect and normal mood; Absent anxious and depressed Skin Skin exam: Present dry and intact OBJ DATA Labs CBC & Chem 7: 12/02/20 05:31 12/01/20 05:13 Labs: Abnormal Lab Results 12/02/20 12/01/20 12/01/20 05:31 05:13 05:13 RBC Hgb 13.1 L 13.2 L Hct 40.7 L MPV 11.2 H 11.0 H Neut % (Auto) 80.7 H 80.9 H Lymph % (Auto) 9.7 L 10.7 L Lymph # (Auto) 0.71 L 0.80 L Carbon Dioxide 21 L Creatinine Glucose 134 H Calcium 8.5 L Total Protein 5.5 L Albumin 2.6 L Albumin/Globulin Ratio 0.9 L 11/30/20 11/30/20 11/29/20 05:21 05:21 05:00 RBC 4.42 L Hgb 13.2 L Hct 38.9 L MPV 10.9 H Neut % (Auto) 79.4 H Lymph % (Auto) 10.9 L Lymph # (Auto) 0.72 L Carbon Dioxide 21 L Creatinine 0.6 L Glucose 236 H 256 H Calcium 8.0 L 7.9 L Total Protein 5.4 L 5.7 L Albumin 2.8 L 2.8 L Albumin/Globulin Ratio Meds: Medications Acetaminophen (Acetaminophen 325 Mg Tablet) 650 mg PO Q6HP PRN PRN Reason: PAIN/FEVER > 101 Albuterol/Ipratropium (Ipratropium/Albuterol 3 Ml Ampul.Neb) 3 ml NEB Q4HP PRN PRN Reason: Shortness Of Breath Last Admin: 11/30/20 11:15 Dose: 3 ml Documented by: Aspirin (Aspirin 81 Mg Tab.Chew) 81 mg PO DAILY [facility] Last Admin: 12/01/20 09:22 Dose: 81 mg Documented by: Atorvastatin Calcium (Atorvastatin 40 Mg Tablet) 40 mg PO QDAY [facility] Last Admin: 12/01/20 09:22 Dose: 40 mg Documented by: Ceftriaxone Sodium (Ceftriaxone 1 Gm Vial) 1 gm IV Q24H [facility]; Protocol Last Admin: 12/01/20 09:21 Dose: 1 gm Documented by: Dexamethasone (Dexamethasone 4 Mg Tablet) 6 mg PO DAILY [facility] Last Admin: 12/01/20 09:22 Dose: 6 mg Documented by: Dextrose (Dextrose 50% 50 Ml Vial) 0 ml IV UD PRN PRN Reason: Hypoglycemia Diagnostic Test (Pha) (Accu-Chek 1 Each Strip) 1 each FS ACHS [facility] Last Admin: 12/01/20 20:42 Dose: 1 each Documented by: Enoxaparin Sodium (Enoxaparin 120 Mg/0.8 Ml Syringe) 120 mg SQ BID [facility] Last Admin: 12/01/20 20:49 Dose: 120 mg Documented by: Furosemide (Furosemide 20 Mg Tablet) 20 mg PO BID [facility] Last Admin: 12/01/20 20:51 Dose: 20 mg Documented by: Glucose (Dextrose 31 Gm Oral.Susp) 15 gm PO PRN PRN PRN Reason: Hypoglycemia Magnesium Sulfate (Magnesium Sulfate) 2 gm in 50 mls @ 50 mls/hr IV UD PRN PRN Reason: Magnesium </= 1.6 Potassium Chloride 40 meq/ (Dextrose) 520 mls @ 130 mls/hr IV UD PRN PRN Reason: Potassium < 3 Insulin Glargine (Insulin Glargine, Human 1 Unit/0.01 Ml) 80 unit SQ BID [facility] Last Admin: 12/01/20 20:49 Dose: 80 unit Documented by: Insulin Human Lispro (Insulin Lispro 1 Unit/0.01 Ml Unit) 0 unit SQ [facility]; Protocol Last Admin: 12/01/20 20:43 Dose: 15 unit Documented by: Lisinopril (Lisinopril 20 Mg Tablet) 40 mg PO DAILY [facility] Last Admin: 12/01/20 09:21 Dose: 40 mg Documented by: Nateglinide (Nateglinide 120 Mg Tablet) 60 mg PO TIDAC [facility] Last Admin: 12/01/20 17:34 Dose: 60 mg Documented by: Ondansetron HCl (Ondansetron 4 Mg/2 Ml Vial) 4 mg IV Q4HP PRN PRN Reason: Nausea And Vomiting Pantoprazole Sodium (Pantoprazole 40 Mg Tablet) 40 mg PO QAMAC [facility] Last Admin: 12/01/20 07:48 Dose: 40 mg Documented by: Empagliflozin [ Jardiance] 25 Mg Tablet 1 dose PO QDAY [facility] Last Admin: 12/01/20 09:22 Dose: Not Given Documented by: Polyethylene Glycol (Polyethylene Glycol 3350 17 Gm Packet) 17 gm PO DAILYP PRN PRN Reason: Constipation Potassium Chloride (Potassium Chloride 20 Meq Tablet) 40 meq PO UD PRN PRN Reason: Potssium is 3-3.5 Last Admin: 12/01/20 18:39 Dose: 40 meq Documented by: Potassium Chloride (Potassium Chloride 20 Meq Tablet) 40 meq PO UD PRN PRN Reason: Potassium < 3 Senna (Sennosides 1 Tablet) 2 tab PO DAILYP PRN PRN Reason: Constipation Sodium Chloride (0.9 % Sodium Chloride 10 Ml Syringe) 10 ml IV Q8 [facility] Last Admin: 12/02/20 05:23 Dose: 10 ml Documented by: A/P Assessment and plan (1) Pneumonia due to COVID-19 virus: Status: Acute (2) GERD (gastroesophageal reflux disease): Status: Chronic (3) Type 2 diabetes mellitus with hyperglycemia: Status: Chronic (4) Mixed hyperlipidemia: Status: Chronic Narrative A/P Narrative: Assessment and Plans: 1. CoVID pneumonia: Stays in inpatient PCU with telemetry Isolation: airborne and contact High flow oxygen Proning 16 hours per day Finished 5 day course of Remdesivir Dexamethasone Lasix Lovenox Rocephin Zithromax Daily inflammatory markers cbc w/ auto diff in the morning to trend WBC 2. T2DM: HgA1c 12.4 Lantus 80 unit BID Lispro high dose SSI AC HS Jardiance Accu Chek AC HS Hypoglycemia protocol Diabetic diet 3. Essential HTN: Currently normotensive Lasix Lisinopril d/c Nebivolol given bradycardia 4. GERD: Continue PPI from home regimen GI ppx: Continue PPI from home regimen DVT ppx: Lovenox 1mg/kg BID Code status: Full Prognosis: guarded Disposition: inpatient PCU Time Spent With Patient Time: Total time spent is greater than 50% in coordination of care (as documented) at patient's floor/unit and/or counseling patient:
[2020-12-02] MEDS: NATEGLINIDE 120 MG TABLET PO SCH ×3 (07:15→16:59)
[2020-12-02] MEDS: INSULIN LISPRO 1 UNIT/0.01 ML UNIT SQ SCH ×4 (07:30→20:57)
[2020-12-02 07:35] LABS: ALT/SGPT 15 U/L (<40); AST/SGOT 14 U/L (<40); Albumin 2.9 gm/dL (3.2-5.2); Albumin/Globulin Ratio 1.1 (1.0-2.3); Alkaline Phosphatase 72 U/L (39-117); Bilirubin,Total 0.3 mg/dL (0.1-1.0); Blood Urea Nitrogen 18 mg/dL (8-23); Calcium 8.4 mg/dL (8.6-10.4); Carbon Dioxide 25 mmol/L (22-30); Chloride 100 mmol/L (96-108); Globulin 2.6 gm/dL (2.2-3.7); Glomerular Filtration Rate 95; Glucose 132 mg/dL (70-105)
[2020-12-02] MEDS: Empagliflozin [Jardiance] 25 mg tablet PO SCH (08:48)
[2020-12-02] MEDS: ENOXAPARIN 120 MG/0.8 ML SYRINGE SQ SCH ×2 (08:55→20:58)
[2020-12-02] MEDS: INSULIN GLARGINE, HUMAN 1 UNIT/0.01 ML SQ SCH ×2 (08:56→20:57)
[2020-12-02] MEDS: ATORVASTATIN 40 MG TABLET PO SCH (08:57)
[2020-12-02] MEDS: FUROSEMIDE 20 MG TABLET PO SCH ×2 (08:57→16:59)
[2020-12-02] MEDS: ASPIRIN 81 MG TAB.CHEW PO SCH (08:57)
[2020-12-02] MEDS: LISINOPRIL 20 MG TABLET PO SCH (08:57)
[2020-12-02] MEDS: DEXAMETHASONE 4 MG TABLET PO SCH (08:58)
[2020-12-02] MEDS: cefTRIAXone 1 GM VIAL IV SCH (08:58)
--- NOTE | 2020-12-02 17:47 | Internal Med Progress Note ---
SUBJECTIVE Subjective Patient information: Note initiated : 12/03/20 at 5:45 pm Service Date, if different from initiated Date: [] Patient: Jennifer Luu a 65 y/o M admitted on 11/26/20 for shortness of breath, body aches, fatigue. Chief Complaint: [] Interval history: History of present illness: Mr. Luu is a 64 year old M History of diabetes hypertension CAD who has been feeling ill for about a week and started with sore throat body aches and fevers per day fatigue shortness of breath he has a cough that is mildly productive. Shortness of breath has been worsening a week and fatigue has been worsening. Presented to urgent care today and then sent to the ER because he was hypoxic in the mid 80s. Covid test was positive. Chest x-ray with bilateral infiltrates. He is on 3 to 4 L nasal cannula at this time. Denies chest pain. 11/28: Afebrile overnight. Been on Vapotherm. Blood cultures no growth to date. Patient is c/o shortness of breath, moderate. He is c/o nonproductive cough as well as respiratory wheezing. He denies any chest pain. He denies any fever or chills or sweating. 11/29: Afebrile overnight. Been on Vapotherm. Blood cultures no growth to date. Patient is c/o shortness of breath, mild and improving. He is c/o productive cough with brown sputum. He denies any respiratory wheezing. He denies any chest pain. He denies any fever or chills or sweating. 11/30: afebrile overnight. Switched to BiPAP overnight with FiO2 50% and IPAP EPAP 03/29. Been prone overnight. Patient is c/o moderate hortness of breath. c/o nonproductive cough. Denies wheezing. Denies chest pain. Denies fever or chills. Denies anxiety. 12/01: Afebrile overnight. Been tolerating partial prone. Been on CPAP FiO2 55%, pressure of 12. Improving degree of shortness of breath. c/o nonproductive cough. Denies wheezing. Denies chest pain. Denies fever or chills. Denies anxiety. 12/02: Afebrile overnight. Been tolerating partial prone. Been switched to high flow oxygen 7-9L/min. Improving degree of shortness of breath. c/o nonproductive cough. Denies wheezing. Denies chest pain. Denies fever or chills. Denies anxiety. 01/03: Feels better today, oxygen decreased to 5 L/minute. Desaturates with activity. Decreased Lantus to 70 units BID. The patient is anxious to go home, discussed that he will probably need home oxygen at discharge. Review of Systems: no fevers, improving dyspnea Physical exam Head: Atraumatic, normal inspection. Eyes: normal appearance, no scleral icterus. Neck: full ROM Respiratory: nasal canula oxygen at 5 l/min, no respiratory distress. Cardiovascular: normal rate and rhythm, S1, S2. GI/Abdominal: soft, nontender, no guarding. Extremities: full range of motion, nontender. Neurological: CN II-XII intact, intact motor, intact sensation. Psychiatric: normal mood. Skin: warm, normal color Constitutional Vitals: Vital Signs Temp Pulse Resp BP Pulse Ox 97.8 F 58 L 19 104/65 95 12/02/20 16:01 12/02/20 16:01 12/02/20 16:01 12/02/20 16:01 12/02/20 16:01 Period Temp Pulse Resp BP Sys/Uriostegui Pulse Ox Last 24 Hr 97.2 F-97.9 F 49-85 15-24 95-125/49-76 89-97 Intake and Output 12/02/20 12/02/20 12/02/20 05:59 13:59 21:59 Intake Total 545 256 9901 Output Total 1100 525 350 Balance -600 75 987 Intake & Output: Intake & Output 12/02/20 12/02/20 12/02/20 05:59 13:59 21:59 Intake Total 690 313 3065 Output Total 1100 525 350 Balance -600 75 987 Intake: Nourishment/Supplement quantity 200 237 (ml) Oral 636 490 3550 Output: Void Amount 1100 525 350 Other: Meal Breakfast Lunch Percent of Meal Consumed 90% 100% Feeding Ability Independent Independent Nourishment/Supplement name [place] Urine Appearance Clear Clear Clear Urine Color Pale Light Rupali Light Rupali Urine Odor Normal Normal Normal Stool Size Large Stool Color Brown Stool Consistency Formed # Bowel Movements 1 OBJ DATA Labs CBC & Chem 7: 12/02/20 05:31 12/02/20 05:30 Labs: Abnormal Lab Results 12/02/20 12/02/20 12/02/20 05:31 05:31 05:30 RBC Hgb 13.1 L Hct 40.7 L MPV 11.2 H Neut % (Auto) 80.7 H Lymph % (Auto) 9.7 L Lymph # (Auto) 0.71 L Carbon Dioxide Creatinine Glucose 132 H Calcium 8.4 L Total Protein 5.5 L Albumin 2.9 L Albumin/Globulin Ratio 25-OH Vitamin D Total 29.86 L 12/01/20 12/01/20 11/30/20 05:13 05:13 05:21 RBC Hgb 13.2 L Hct MPV 11.0 H Neut % (Auto) 80.9 H Lymph % (Auto) 10.7 L Lymph # (Auto) 0.80 L Carbon Dioxide 21 L 21 L Creatinine 0.6 L Glucose 134 H 236 H Calcium 8.5 L 8.0 L Total Protein 5.5 L 5.4 L Albumin 2.6 L 2.8 L Albumin/Globulin Ratio 0.9 L 25-OH Vitamin D Total 11/30/20 05:21 RBC 4.42 L Hgb 13.2 L Hct 38.9 L MPV 10.9 H Neut % (Auto) 79.4 H Lymph % (Auto) 10.9 L Lymph # (Auto) 0.72 L Carbon Dioxide Creatinine Glucose Calcium Total Protein Albumin Albumin/Globulin Ratio 25-OH Vitamin D Total Meds: Medications Acetaminophen (Acetaminophen 325 Mg Tablet) 650 mg PO Q6HP PRN PRN Reason: PAIN/FEVER > 101 Albuterol/Ipratropium (Ipratropium/Albuterol 3 Ml Ampul.Neb) 3 ml NEB Q4HP PRN PRN Reason: Shortness Of Breath Last Admin: 11/30/20 11:15 Dose: 3 ml Documented by: Aspirin (Aspirin 81 Mg Tab.Chew) 81 mg PO DAILY [facility] Last Admin: 12/02/20 08:57 Dose: 81 mg Documented by: Atorvastatin Calcium (Atorvastatin 40 Mg Tablet) 40 mg PO QDAY [facility] Last Admin: 12/02/20 08:57 Dose: 40 mg Documented by: Ceftriaxone Sodium (Ceftriaxone 1 Gm Vial) 1 gm IV Q24H [facility]ERE[facility]; Protocol Last Admin: 12/02/20 08:58 Dose: 1 gm Documented by: Dexamethasone (Dexamethasone 4 Mg Tablet) 6 mg PO DAILY [facility] Last Admin: 12/02/20 08:58 Dose: 6 mg Documented by: Dextrose (Dextrose 50% 50 Ml Vial) 0 ml IV UD PRN PRN Reason: Hypoglycemia Diagnostic Test (Pha) (Accu-Chek 1 Each Strip) 1 each FS ACHS [facility] Last Admin: 12/02/20 16:58 Dose: 1 each Documented by: Enoxaparin Sodium (Enoxaparin 120 Mg/0.8 Ml Syringe) 120 mg SQ BID [facility] Last Admin: 12/02/20 08:55 Dose: 120 mg Documented by: Furosemide (Furosemide 20 Mg Tablet) 20 mg PO BIDD [facility] Last Admin: 12/02/20 16:59 Dose: 20 mg Documented by: Glucose (Dextrose 31 Gm Oral.Susp) 15 gm PO PRN PRN PRN Reason: Hypoglycemia Magnesium Sulfate (Magnesium Sulfate) 2 gm in 50 mls @ 50 mls/hr IV UD PRN PRN Reason: Magnesium </= 1.6 Potassium Chloride 40 meq/ (Dextrose) 520 mls @ 130 mls/hr IV UD PRN PRN Reason: Potassium < 3 Insulin Glargine (Insulin Glargine, Human 1 Unit/0.01 Ml) 80 unit SQ BID [facility] Last Admin: 12/02/20 08:56 Dose: 80 unit Documented by: Insulin Human Lispro (Insulin Lispro 1 Unit/0.01 Ml Unit) 0 unit SQ [facility]; Protocol Last Admin: 12/02/20 16:59 Dose: 9 unit Documented by: Lisinopril (Lisinopril 20 Mg Tablet) 40 mg PO DAILY [facility] Last Admin: 12/02/20 08:57 Dose: 40 mg Documented by: Nateglinide (Nateglinide 120 Mg Tablet) 60 mg PO TIDAC [facility] Last Admin: 12/02/20 16:59 Dose: 60 mg Documented by: Ondansetron HCl (Ondansetron 4 Mg/2 Ml Vial) 4 mg IV Q4HP PRN PRN Reason: Nausea And Vomiting Pantoprazole Sodium (Pantoprazole 40 Mg Tablet) 40 mg PO QAMAC [facility] Last Admin: 12/02/20 07:14 Dose: 40 mg Documented by: Empagliflozin [ Jardiance] 25 Mg Tablet 1 dose PO QDAY [facility] Last Admin: 12/02/20 08:48 Dose: 1 dose Documented by: Polyethylene Glycol (Polyethylene Glycol 3350 17 Gm Packet) 17 gm PO DAILYP PRN PRN Reason: Constipation Potassium Chloride (Potassium Chloride 20 Meq Tablet) 40 meq PO UD PRN PRN Reason: Potssium is 3-3.5 Last Admin: 12/01/20 18:39 Dose: 40 meq Documented by: Potassium Chloride (Potassium Chloride 20 Meq Tablet) 40 meq PO UD PRN PRN Reason: Potassium < 3 Senna (Sennosides 1 Tablet) 2 tab PO DAILYP PRN PRN Reason: Constipation Sodium Chloride (0.9 % Sodium Chloride 10 Ml Syringe) 10 ml IV Q8 [facility] Last Admin: 12/02/20 14:09 Dose: 10 ml Documented by: A/P Narrative A/P Narrative: Assessment: 65 year old male with a history of HTN, T2DM, CAD admitted for severe COVID-19 pneumonia. #Acute hypoxic respiratory failure-improving #Severe COVID-19 pneumonia #Possible bacterial pneumonia coinfection #Type 2 diabetes mellitus-insulin dependent #Hypertension #GERD Plan -Continue Dexamethasone, completed Remdesivir x5 days. -Oxygen supplementation as needed. -Completed Ceftriaxone and Azithromycin for possible pneumonia. -Decrease Lantus to 70 units BID, continue SSI. -Continue home Lisinopril, Lasix, Aspirin, Atorvastatin, Empagliflozin, Nateglinide. -DVT ppx: Lovenox SQ -Code status: Full -Disposition: probably home, home oxygen evaluation before discharge. Time Spent With Patient Time: Total time spent is greater than 50% in coordination of care (as documented) at patient's floor/unit and/or counseling patient:
[2020-12-03] MEDS: 0.9 % SODIUM CHLORIDE 10 ML SYRINGE IV SCH ×3 (06:04→20:50)
[2020-12-03] MEDS: INSULIN LISPRO 1 UNIT/0.01 ML UNIT SQ SCH ×4 (07:30→20:42)
[2020-12-03] MEDS: PANTOPRAZOLE 40 MG TABLET PO SCH (07:36)
[2020-12-03] MEDS: FUROSEMIDE 20 MG TABLET PO SCH ×2 (07:37→16:52)
[2020-12-03] MEDS: NATEGLINIDE 120 MG TABLET PO SCH ×3 (07:43→17:07)
[2020-12-03] MEDS: LISINOPRIL 20 MG TABLET PO SCH (11:02)
[2020-12-03] MEDS: ENOXAPARIN 120 MG/0.8 ML SYRINGE SQ SCH (11:02)
[2020-12-03] MEDS: ASPIRIN 81 MG TAB.CHEW PO SCH (11:03)
[2020-12-03] MEDS: DEXAMETHASONE 4 MG TABLET PO SCH (11:03)
[2020-12-03] MEDS: INSULIN GLARGINE, HUMAN 1 UNIT/0.01 ML SQ SCH ×2 (11:04→20:43)
[2020-12-03] MEDS: Empagliflozin [Jardiance] 25 mg tablet PO SCH (11:04)
[2020-12-03] MEDS: ATORVASTATIN 40 MG TABLET PO SCH (11:04)
[2020-12-03] MEDS: cefTRIAXone 1 GM VIAL IV SCH (11:11)
[2020-12-03] MEDS: METOPROLOL TARTRATE 5 MG/5 ML VIAL IV PRN ×2 (18:25→20:49)
[2020-12-03] MEDS ORDERED: METOPROLOL TARTRATE 5 MG/5 ML VIAL IV ONE ×2 (18:26→20:52)
--- NOTE | 2020-12-03 20:44 | EKG ---
[facility] Test Date: 2020-12-03 Pat Name: Jennifer Luu Department: ICU Room: 119 Gender: Male Contact Center Analyst: : [id number] Requested By: Lior Ardon Order Number: [id number] Reading MD: Steve Santana M.D. Measurements Intervals [place] Rate: 145 P: AR: QRS: -15 QRSD: 84 T: 199 QT: 272 QTc: 423 Interpretive Statements ATRIAL FIBRILLATION, V-RATE 103-181 CONSIDER ANTERIOR INFARCT NONSPECIFIC REPOL ABNORMALITY, DIFFUSE LEADS Since previous ECG of 11-26-2020, ATRIAL FIB/RVR, REDUCED R-WAVE V3 ABNORMAL ECG Electronically Signed On 12-03-2020 20:44:09 PDT by Steve Santana M.D. /store/[email or web address]/[id number]
[2020-12-03] MEDS: METOPROLOL TARTRATE 50 MG TABLET PO SCH (21:16)
[2020-12-04] MEDS: 0.9 % SODIUM CHLORIDE 10 ML SYRINGE IV SCH ×3 (05:27→21:37)
[2020-12-04] MEDS: INSULIN LISPRO 1 UNIT/0.01 ML UNIT SQ SCH ×4 (07:19→21:37)
[2020-12-04] MEDS: DEXAMETHASONE 4 MG TABLET PO SCH (07:45)
[2020-12-04] MEDS: LISINOPRIL 20 MG TABLET PO SCH ×2 (07:45→11:04)
[2020-12-04] MEDS: ASPIRIN 81 MG TAB.CHEW PO SCH (07:46)
[2020-12-04] MEDS: ATORVASTATIN 40 MG TABLET PO SCH (07:46)
[2020-12-04] MEDS: FUROSEMIDE 20 MG TABLET PO SCH ×2 (07:46→16:45)
[2020-12-04] MEDS: NATEGLINIDE 120 MG TABLET PO SCH ×3 (07:46→16:45)
[2020-12-04] MEDS: METOPROLOL TARTRATE 50 MG TABLET PO SCH ×2 (07:46→21:36)
[2020-12-04] MEDS: Empagliflozin [Jardiance] 25 mg tablet PO SCH (07:46)
[2020-12-04] MEDS: PANTOPRAZOLE 40 MG TABLET PO SCH (07:46)
[2020-12-04] MEDS: INSULIN GLARGINE, HUMAN 1 UNIT/0.01 ML SQ SCH ×2 (07:50→21:36)
[2020-12-04] MEDS ORDERED: ENOXAPARIN 120 MG/0.8 ML SYRINGE SQ SCH (09:00)
[2020-12-04] MEDS: ENOXAPARIN 40 MG/0.4 ML SYRINGE SQ SCH (10:40)
--- NOTE | 2020-12-04 12:36 | Internal Med Progress Note ---
SUBJECTIVE Subjective Patient information: Note initiated : 12/04/20 at 12:35 pm Service Date, if different from initiated Date: [] Patient: Jennifer Luu a 65 y/o M admitted on 11/26/20 for shortness of breath, body aches, fatigue. Chief Complaint: [] Interval history: History of present illness: Mr. Luu is a 64 year old M History of diabetes hypertension CAD who has been feeling ill for about a week and started with sore throat body aches and fevers per day fatigue shortness of breath he has a cough that is mildly productive. Shortness of breath has been worsening a week and fatigue has been worsening. Presented to urgent care today and then sent to the ER because he was hypoxic in the mid 80s. Covid test was positive. Chest x-ray with bilateral infiltrates. He is on 3 to 4 L nasal cannula at this time. Denies chest pain. 11/28: Afebrile overnight. Been on Vapotherm. Blood cultures no growth to date. Patient is c/o shortness of breath, moderate. He is c/o nonproductive cough as well as respiratory wheezing. He denies any chest pain. He denies any fever or chills or sweating. 11/29: Afebrile overnight. Been on Vapotherm. Blood cultures no growth to date. Patient is c/o shortness of breath, mild and improving. He is c/o productive cough with brown sputum. He denies any respiratory wheezing. He denies any chest pain. He denies any fever or chills or sweating. 11/30: afebrile overnight. Switched to BiPAP overnight with FiO2 50% and IPAP EPAP 03/29. Been prone overnight. Patient is c/o moderate hortness of breath. c/o nonproductive cough. Denies wheezing. Denies chest pain. Denies fever or chills. Denies anxiety. 12/01: Afebrile overnight. Been tolerating partial prone. Been on CPAP FiO2 55%, pressure of 12. Improving degree of shortness of breath. c/o nonproductive cough. Denies wheezing. Denies chest pain. Denies fever or chills. Denies anxiety. 12/02: Afebrile overnight. Been tolerating partial prone. Been switched to high flow oxygen 7-9L/min. Improving degree of shortness of breath. c/o nonproductive cough. Denies wheezing. Denies chest pain. Denies fever or chills. Denies anxiety. 12/03: Feels better today, oxygen decreased to 5 L/minute. Desaturates with activity. Decreased Lantus to 70 units BID. The patient is anxious to go home, discussed that he will probably need home oxygen at discharge. The patient went into atrial fibrillation with RVR, started on lopressor. Completed antibiotic treatment for possible community aquired pneumonia. 12/04: Weaned down to 4 L/min nasal canula oxygen discussed oral anticoagulation for atrial fibrillation diagnosis, the patient said he will think about it t brianda. TTE ordered for new diagnosis of atrial fibrillation, atrial fibrillation rate control improved on Lopressor. Review of Systems: no fevers, improving dyspnea Physical exam Head: Atraumatic, normal inspection. Eyes: normal appearance, no scleral icterus. Neck: full ROM Respiratory: nasal canula oxygen at 5 l/min, no respiratory distress. Cardiovascular: irregular tachycardia, S1, S2. GI/Abdominal: soft, nontender, no guarding. Extremities: full range of motion, nontender. Neurological: CN II-XII intact, intact motor, intact sensation. Psychiatric: normal mood. Skin: warm, normal color Constitutional Vitals: Vital Signs Temp Pulse Resp BP Pulse Ox 98.1 F 103 H 19 103/65 93 12/04/20 12:01 12/04/20 12:01 12/04/20 12:01 12/04/20 12:12/04/20 12:01 Period Temp Pulse Resp BP Sys/Uriostegui Pulse Ox Last 24 Hr 96.8 F-98.1 F 38-159 5-26 88-125/58-94 90-96 Intake and Output 12/03/20 12/04/20 12/04/20 21:59 05:59 13:59 Intake Total 1440 350 Output Total 1425 1350 650 Balance 15 1000 -650 Weight 117.889 kg Intake & Output: Intake & Output 12/03/20 12/04/20 12/04/20 21:59 05:59 13:59 Intake Total 1440 350 Output Total 1425 1350 650 Balance 15 1000 -650 Weight 117.889 kg Intake: Nourishment/Supplement quantity 240 (ml) Oral 1200 350 Output: Void Amount 1425 1350 650 Other: Meal Dinner Percent of Meal Consumed 100% Feeding Ability Independent Nourishment/Supplement name [place] Urine Appearance Cloudy Clear Clear Urine Color Pale Pale Pale Urine Odor Normal Normal # Bowel Movements 1 OBJ DATA Labs CBC & Chem 7: 12/02/20 05:31 12/02/20 05:30 Labs: Abnormal Lab Results 12/02/20 12/02/20 12/02/20 05:31 05:31 05:30 Hgb 13.1 L Hct 40.7 L MPV 11.2 H Neut % (Auto) 80.7 H Lymph % (Auto) 9.7 L Lymph # (Auto) 0.71 L Glucose 132 H Calcium 8.4 L Total Protein 5.5 L Albumin 2.9 L 25-OH Vitamin D Total 29.86 L Meds: Medications Acetaminophen (Acetaminophen 325 Mg Tablet) 650 mg PO Q6HP PRN PRN Reason: PAIN/FEVER > 101 Albuterol/Ipratropium (Ipratropium/Albuterol 3 Ml Ampul.Neb) 3 ml NEB Q4HP PRN PRN Reason: Shortness Of Breath Last Admin: 11/30/20 11:15 Dose: 3 ml Documented by: Aspirin (Aspirin 81 Mg Tab.Chew) 81 mg PO DAILY [facility] Last Admin: 12/04/20 07:46 Dose: 81 mg Documented by: Atorvastatin Calcium (Atorvastatin 40 Mg Tablet) 40 mg PO QDAY [facility] Last Admin: 12/04/20 07:46 Dose: 40 mg Documented by: Dexamethasone (Dexamethasone 4 Mg Tablet) 6 mg PO DAILY [facility] Last Admin: 12/04/20 07:45 Dose: 6 mg Documented by: Dextrose (Dextrose 50% 50 Ml Vial) 0 ml IV UD PRN PRN Reason: Hypoglycemia Diagnostic Test (Pha) (Accu-Chek 1 Each Strip) 1 each FS ACHS [facility] Last Admin: 12/04/20 11:03 Dose: 1 each Documented by: Enoxaparin Sodium (Enoxaparin 40 Mg/0.4 Ml Syringe) 40 mg SQ DAILY [facility] Last Admin: 12/04/20 10:40 Dose: 40 mg Documented by: Furosemide (Furosemide 20 Mg Tablet) 20 mg PO BIDD [facility] Last Admin: 12/04/20 07:46 Dose: 20 mg Documented by: Glucose (Dextrose 31 Gm Oral.Susp) 15 gm PO PRN PRN PRN Reason: Hypoglycemia Magnesium Sulfate (Magnesium Sulfate) 2 gm in 50 mls @ 50 mls/hr IV UD PRN PRN Reason: Magnesium </= 1.6 Potassium Chloride 40 meq/ (Dextrose) 520 mls @ 130 mls/hr IV UD PRN PRN Reason: Potassium < 3 Insulin Glargine (Insulin Glargine, Human 1 Unit/0.01 Ml) 70 unit SQ BID [facility] Last Admin: 12/04/20 07:50 Dose: 70 units Documented by: Insulin Human Lispro (Insulin Lispro 1 Unit/0.01 Ml Unit) 0 unit SQ ACHS [facility]; Protocol Last Admin: 12/04/20 12:20 Dose: 3 unit Documented by: Lisinopril (Lisinopril 20 Mg Tablet) 40 mg PO DAILY [facility] Last Admin: 12/04/20 11:04 Dose: Not Given Documented by: Metoprolol Tartrate (Metoprolol Tartrate 50 Mg Tablet) 50 mg PO BID [facility] Last Admin: 12/04/20 07:46 Dose: 50 mg Documented by: Metoprolol Tartrate (Metoprolol Tartrate 5 Mg/5 Ml Vial) 5 mg IV Q4HP PRN PRN Reason: Tachyarrhythmias Last Admin: 12/03/20 20:49 Dose: 5 mg Documented by: Nateglinide (Nateglinide 120 Mg Tablet) 60 mg PO TIDAC [facility] Last Admin: 12/04/20 12:20 Dose: 60 mg Documented by: Ondansetron HCl (Ondansetron 4 Mg/2 Ml Vial) 4 mg IV Q4HP PRN PRN Reason: Nausea And Vomiting Pantoprazole Sodium (Pantoprazole 40 Mg Tablet) 40 mg PO QAMAC [facility] Last Admin: 12/04/20 07:46 Dose: 40 mg Documented by: Empagliflozin [ Jardiance] 25 Mg Tablet 1 dose PO QDAY [facility] Last Admin: 12/04/20 07:46 Dose: 1 dose Documented by: Polyethylene Glycol (Polyethylene Glycol 3350 17 Gm Packet) 17 gm PO DAILYP PRN PRN Reason: Constipation Potassium Chloride (Potassium Chloride 20 Meq Tablet) 40 meq PO UD PRN PRN Reason: Potssium is 3-3.5 Last Admin: 12/01/20 18:39 Dose: 40 meq Documented by: Potassium Chloride (Potassium Chloride 20 Meq Tablet) 40 meq PO UD PRN PRN Reason: Potassium < 3 Senna (Sennosides 1 Tablet) 2 tab PO DAILYP PRN PRN Reason: Constipation Sodium Chloride (0.9 % Sodium Chloride 10 Ml Syringe) 10 ml IV Q8 [facility] Last Admin: 12/04/20 05:27 Dose: 10 ml Documented by: A/P Narrative A/P Narrative: Assessment: 65 year old male with a history of HTN, T2DM, CAD admitted for severe COVID-19 pneumonia. #Acute hypoxic respiratory failure-improving #Severe COVID-19 pneumonia #Atrial fibrillation #Treated bacterial pneumnonia coinfection #Type 2 diabetes mellitus-insulin dependent #Hypertension #GERD Plan -Continue Dexamethasone for a total of 10 days, completed Remdesivir x5 days. -Oxygen supplementation, wean as tolerated. -Completed Ceftriaxone and Azithromycin for possible pneumonia. -Lantus and SSI. -Lopressor BID for rate control, consider increasing dose. -Patient considering anticoagulation for atrial fibrillation. -Follow up pending TTE report. -Continue home Lisinopril, Lasix, Aspirin, Atorvastatin, Empagliflozin, Nateglinide. -DVT ppx: Lovenox SQ -Code status: Full -Disposition: probably home, home oxygen evaluation before discharge. Time Spent With Patient Time: Total time spent is greater than 50% in coordination of care (as documented) at patient's floor/unit and/or counseling patient:
[2020-12-04 16:25] LABS: ALT/SGPT 25 U/L (<40); AST/SGOT 24 U/L (<40); Albumin 2.9 gm/dL (3.2-5.2); Albumin/Globulin Ratio 0.9 (1.0-2.3); Alkaline Phosphatase 86 U/L (39-117); Bilirubin,Direct < 0.2 mg/dL (0-0.3); Bilirubin,Total 0.5 mg/dL (0.1-1.0); Blood Urea Nitrogen 23 mg/dL (8-23); Carbon Dioxide 20 mmol/L (22-30); Chloride 97 mmol/L (96-108); Globulin 3.1 gm/dL (2.2-3.7); Glomerular Filtration Rate 100; Glucose 323 mg/dL (70-105); Lactate Dehydrogenase 366 U/L (135-225); Phosphorous 4.3 mg/dL (2.5-4.5); Triglycerides 312 mg/dL (<150); Uric Acid 4.4 mg/dL (2.5-8.0)
[2020-12-05] MEDS: 0.9 % SODIUM CHLORIDE 10 ML SYRINGE IV SCH ×3 (05:18→21:42)
[2020-12-05 07:04] LABS: ALT/SGPT 23 U/L (<40); AST/SGOT 14 U/L (<40); Albumin 2.8 gm/dL (3.2-5.2); Albumin/Globulin Ratio 1.1 (1.0-2.3); Alkaline Phosphatase 73 U/L (39-117); Bilirubin,Direct < 0.2 mg/dL (0-0.3); Bilirubin,Total 0.4 mg/dL (0.1-1.0); Blood Urea Nitrogen 23 mg/dL (8-23); Calcium 8.8 mg/dL (8.6-10.4); Carbon Dioxide 23 mmol/L (22-30); Chloride 99 mmol/L (96-108); Globulin 2.6 gm/dL (2.2-3.7); Glomerular Filtration Rate 95; Glucose 115 mg/dL (70-105); Lactate Dehydrogenase 264 U/L (135-225); Phosphorous 4.2 mg/dL (2.5-4.5); Triglycerides 210 mg/dL (<150); Uric Acid 4.6 mg/dL (2.5-8.0)
[2020-12-05] MEDS: INSULIN LISPRO 1 UNIT/0.01 ML UNIT SQ SCH ×4 (07:13→21:41)
[2020-12-05] MEDS ORDERED: 0.9 % SODIUM CHLORIDE 500 ML IV ONE (07:22)
[2020-12-05] MEDS: ASPIRIN 81 MG TAB.CHEW PO SCH (08:19)
[2020-12-05] MEDS: DEXAMETHASONE 4 MG TABLET PO SCH (08:20)
[2020-12-05] MEDS: ATORVASTATIN 40 MG TABLET PO SCH (08:20)
[2020-12-05] MEDS: ENOXAPARIN 40 MG/0.4 ML SYRINGE SQ SCH (08:20)
[2020-12-05] MEDS: INSULIN GLARGINE, HUMAN 1 UNIT/0.01 ML SQ SCH ×2 (08:20→21:41)
[2020-12-05] MEDS: PANTOPRAZOLE 40 MG TABLET PO SCH (08:20)
[2020-12-05] MEDS: METOPROLOL TARTRATE 50 MG TABLET PO SCH ×2 (08:20→20:11)
[2020-12-05] MEDS: NATEGLINIDE 120 MG TABLET PO SCH ×3 (08:24→17:59)
[2020-12-05] MEDS: Empagliflozin [Jardiance] 25 mg tablet PO SCH (08:24)
--- NOTE | 2020-12-05 13:50 | Internal Med Progress Note ---
SUBJECTIVE Subjective Patient information: Note initiated : 12/05/20 at 1:45 pm Service Date, if different from initiated Date: [] Patient: Jennifer Luu a 65 y/o M admitted on 11/26/20 for shortness of breath, body aches, fatigue. Chief Complaint: [] Interval history: History of present illness: Mr. Luu is a 64 year old M History of diabetes hypertension CAD who has been feeling ill for about a week and started with sore throat body aches and fevers per day fatigue shortness of breath he has a cough that is mildly productive. Shortness of breath has been worsening a week and fatigue has been worsening. Presented to urgent care today and then sent to the ER because he was hypoxic in the mid 80s. Covid test was positive. Chest x-ray with bilateral infiltrates. He is on 3 to 4 L nasal cannula at this time. Denies chest pain. 11/28: Afebrile overnight. Been on Vapotherm. Blood cultures no growth to date. Patient is c/o shortness of breath, moderate. He is c/o nonproductive cough as well as respiratory wheezing. He denies any chest pain. He denies any fever or chills or sweating. 11/29: Afebrile overnight. Been on Vapotherm. Blood cultures no growth to date. Patient is c/o shortness of breath, mild and improving. He is c/o productive cough with brown sputum. He denies any respiratory wheezing. He denies any chest pain. He denies any fever or chills or sweating. 11/30: afebrile overnight. Switched to BiPAP overnight with FiO2 50% and IPAP EPAP 03/29. Been prone overnight. Patient is c/o moderate hortness of breath. c/o nonproductive cough. Denies wheezing. Denies chest pain. Denies fever or chills. Denies anxiety. 12/01: Afebrile overnight. Been tolerating partial prone. Been on CPAP FiO2 55%, pressure of 12. Improving degree of shortness of breath. c/o nonproductive cough. Denies wheezing. Denies chest pain. Denies fever or chills. Denies anxiety. 12/02: Afebrile overnight. Been tolerating partial prone. Been switched to high flow oxygen 7-9L/min. Improving degree of shortness of breath. c/o nonproductive cough. Denies wheezing. Denies chest pain. Denies fever or chills. Denies anxiety. 12/03: Feels better today, oxygen decreased to 5 L/minute. Desaturates with activity. Decreased Lantus to 70 units BID. The patient is anxious to go home, discussed that he will probably need home oxygen at discharge. The patient went into atrial fibrillation with RVR, started on lopressor. Completed antibiotic treatment for possible community aquired pneumonia. 12/04: Weaned down to 4 L/min nasal canula oxygen discussed oral anticoagulation for atrial fibrillation diagnosis, the patient said he will think about it to day. TTE ordered for new diagnosis of atrial fibrillation, atrial fibrillation rate control improved on Lopressor. CHADS VASc calculated to be 2 with an annual stroke risk of about 2.2%. Discussed anticoagulation with the patient in detail, the patient will think about it. 12/05: Weaned to 3 L/min nasal canula oxygen, more active in room without severe dyspnea, tolerating diet. Acceptable rate control on metoprolol. Discussed anticoagulation once again, the patient declined oral anticoagulation therapy as he feels he is already on to many maintenance medications. I again reiterated the risk of stroke but he continues to refuse anticoagulation. ECHO pending. Possible discharge to home tomorrow, will probably need home oxygen at discharge. Review of Systems: no fevers, improving dyspnea Physical exam Head: Atraumatic, normal inspection. Eyes: normal appearance, no scleral icterus. Neck: full ROM Respiratory: nasal canula oxygen at 5 l/min, no respiratory distress. Cardiovascular: irregular tachycardia, S1, S2. GI/Abdominal: soft, nontender, no guarding. Extremities: full range of motion, nontender. Neurological: CN II-XII intact, intact motor, intact sensation. Psychiatric: normal mood. Skin: warm, normal color Constitutional Vitals: Vital Signs Temp Pulse Resp BP Pulse Ox 98.6 F 68 11 L 103/63 95 12/05/20 12:01 12/05/20 12:01 12/05/20 12:01 12/05/20 12:12/05/20 12:01 Period Temp Pulse Resp BP Sys/Uriostegui Pulse Ox Last 24 Hr 97.0 F-98.6 F 25-109 03-16 86-117/47-78 87-95 Intake and Output 12/04/20 12/05/20 12/05/20 21:59 05:59 13:59 Intake Total 1200 Output Total 750 1875 Balance -750 -675 Weight 117.118 kg Intake & Output: Intake & Output 12/04/20 12/05/20 12/05/20 21:59 05:59 13:59 Intake Total 1200 Output Total 750 1875 Balance -750 -675 Weight 117.118 kg Intake: Oral 1200 Output: Void Amount 750 1875 Other: Urine Appearance Clear Clear Urine Color Pale Pale Urine Odor Normal Stool Size Large Stool Color Brown Stool Consistency Formed OBJ DATA Labs CBC & Chem 7: 12/02/20 05:31 12/05/20 05:27 Labs: Abnormal Lab Results 12/05/20 12/04/20 12/02/20 05:27 15:25 05:31 Sodium 131 L Carbon Dioxide 20 L Glucose 115 H 323 H Lactate Dehydrogenase 264 H 366 H Total Protein 5.4 L Albumin 2.8 L 2.9 L Albumin/Globulin Ratio 0.9 L Triglycerides 210 H 312 H 25-OH Vitamin D Total 29.86 L Meds: Medications Acetaminophen (Acetaminophen 325 Mg Tablet) 650 mg PO Q6HP PRN PRN Reason: PAIN/FEVER > 101 Albuterol/Ipratropium (Ipratropium/Albuterol 3 Ml Ampul.Neb) 3 ml NEB Q4HP PRN PRN Reason: Shortness Of Breath Last Admin: 11/30/20 11:15 Dose: 3 ml Documented by: Aspirin (Aspirin 81 Mg Tab.Chew) 81 mg PO DAILY [facility] Last Admin: 12/05/20 08:19 Dose: 81 mg Documented by: Atorvastatin Calcium (Atorvastatin 40 Mg Tablet) 40 mg PO QDAY [facility] Last Admin: 12/05/20 08:20 Dose: 40 mg Documented by: Dexamethasone (Dexamethasone 4 Mg Tablet) 6 mg PO DAILY [facility] Last Admin: 12/05/20 08:20 Dose: 6 mg Documented by: Dextrose (Dextrose 50% 50 Ml Vial) 0 ml IV UD PRN PRN Reason: Hypoglycemia Diagnostic Test (Pha) (Accu-Chek 1 Each Strip) 1 each FS ACHS [facility] Last Admin: 12/05/20 12:16 Dose: 1 each Documented by: Enoxaparin Sodium (Enoxaparin 40 Mg/0.4 Ml Syringe) 40 mg SQ DAILY [facility] Last Admin: 12/05/20 08:20 Dose: 40 mg Documented by: Glucose (Dextrose 31 Gm Oral.Susp) 15 gm PO PRN PRN PRN Reason: Hypoglycemia Magnesium Sulfate (Magnesium Sulfate) 2 gm in 50 mls @ 50 mls/hr IV UD PRN PRN Reason: Magnesium </= 1.6 Potassium Chloride 40 meq/ (Dextrose) 520 mls @ 130 mls/hr IV UD PRN PRN Reason: Potassium < 3 Insulin Glargine (Insulin Glargine, Human 1 Unit/0.01 Ml) 70 unit SQ BID [facility] Last Admin: 12/05/20 08:20 Dose: 70 units Documented by: Insulin Human Lispro (Insulin Lispro 1 Unit/0.01 Ml Unit) 0 unit SQ ACHS [facility]; Protocol Last Admin: 12/05/20 12:16 Dose: 6 unit Documented by: Metoprolol Tartrate (Metoprolol Tartrate 50 Mg Tablet) 50 mg PO BID [facility] Last Admin: 12/05/20 08:20 Dose: 50 mg Documented by: Metoprolol Tartrate (Metoprolol Tartrate 5 Mg/5 Ml Vial) 5 mg IV Q4HP PRN PRN Reason: Tachyarrhythmias Last Admin: 12/03/20 20:49 Dose: 5 mg Documented by: Nateglinide (Nateglinide 120 Mg Tablet) 60 mg PO TIDAC [facility] Last Admin: 12/05/20 13:00 Dose: 60 mg Documented by: Ondansetron HCl (Ondansetron 4 Mg/2 Ml Vial) 4 mg IV Q4HP PRN PRN Reason: Nausea And Vomiting Pantoprazole Sodium (Pantoprazole 40 Mg Tablet) 40 mg PO QAMAC [facility] Last Admin: 12/05/20 08:20 Dose: 40 mg Documented by: Empagliflozin [ Jardiance] 25 Mg Tablet 1 dose PO QDAY [facility] Last Admin: 12/05/20 08:24 Dose: 1 dose Documented by: Polyethylene Glycol (Polyethylene Glycol 3350 17 Gm Packet) 17 gm PO DAILYP PRN PRN Reason: Constipation Potassium Chloride (Potassium Chloride 20 Meq Tablet) 40 meq PO UD PRN PRN Reason: Potssium is 3-3.5 Last Admin: 12/01/20 18:39 Dose: 40 meq Documented by: Potassium Chloride (Potassium Chloride 20 Meq Tablet) 40 meq PO UD PRN PRN Reason: Potassium < 3 Senna (Sennosides 1 Tablet) 2 tab PO DAILYP PRN PRN Reason: Constipation Sodium Chloride (0.9 % Sodium Chloride 10 Ml Syringe) 10 ml IV Q8 [facility] Last Admin: 12/05/20 13:36 Dose: 10 ml Documented by: A/P Narrative A/P Narrative: Assessment: 65 year old male with a history of HTN, T2DM, CAD admitted for severe COVID-19 pneumonia. #Acute hypoxic respiratory failure-improving #Severe COVID-19 pneumonia #Atrial fibrillation #Treated bacterial pneumnonia coinfection #Type 2 diabetes mellitus-insulin dependent #Hypertension #GERD Plan -Continue Dexamethasone for a total of 10 days, completed Remdesivir x5 days. -Oxygen supplementation, wean as tolerated. -Completed Ceftriaxone and Azithromycin for possible pneumonia. -Lantus and SSI. -Lopressor BID for rate control, consider increasing dose. -Patient declined oral anticoagulation for atrial fibrillation. -Follow up pending TTE report. -Holding home Lisinopril and Lasix for low BP. -Continue home Aspirin, Atorvastatin, Empagliflozin, Nateglinide. -DVT ppx: Lovenox SQ -Code status: Full -Disposition: probably home, home oxygen evaluation before discharge. Time Spent With Patient Time: Total time spent is greater than 50% in coordination of care (as d ocumented) at patient's floor/unit and/or counseling patient:
--- NOTE | 2020-12-05 20:59 | EKG ---
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 Measurements Intervals [place] Rate: 89 P: NC: QRS: -20 QRSD: 82 T: -34 QT: 360 QTc: 439 Interpretive Statements ATRIAL FIBRILLATION, V-RATE 68-102 BORDERLINE LEFT AXIS DEVIATION CONSIDER ANTERIOR INFARCT BORDERLINE T ABNORMALITIES, DIFFUSE LEADS Electronically Signed On 12-05-2020 20:59:28 PDT by Steve Santana M.D. /[email or web address]/[email or web address]/[id number]
[2020-12-05] MEDS: METOPROLOL TARTRATE 5 MG/5 ML VIAL IV PRN (21:41)
[2020-12-06] MEDS: 0.9 % SODIUM CHLORIDE 10 ML SYRINGE IV SCH ×3 (06:04→20:58)
[2020-12-06 07:20] LABS: ALT/SGPT 27 U/L (<40); AST/SGOT 16 U/L (<40); Albumin 2.7 gm/dL (3.2-5.2); Alkaline Phosphatase 79 U/L (39-117); Bilirubin,Direct < 0.2 mg/dL (0-0.3); Bilirubin,Total 0.4 mg/dL (0.1-1.0); Blood Urea Nitrogen 20 mg/dL (8-23); Calcium 8.7 mg/dL (8.6-10.4); Carbon Dioxide 21 mmol/L (22-30); Chloride 100 mmol/L (96-108); Globulin 2.8 gm/dL (2.2-3.7); Glomerular Filtration Rate 100; Glucose 123 mg/dL (70-105); Lactate Dehydrogenase 267 U/L (135-225); Phosphorous 3.8 mg/dL (2.5-4.5); Triglycerides 270 mg/dL (<150); Uric Acid 4.5 mg/dL (2.5-8.0)
[2020-12-06] MEDS: INSULIN LISPRO 1 UNIT/0.01 ML UNIT SQ SCH ×7 (08:44→23:13)
[2020-12-06] MEDS: ASPIRIN 81 MG TAB.CHEW PO SCH (08:44)
[2020-12-06] MEDS: DEXAMETHASONE 4 MG TABLET PO SCH (08:44)
[2020-12-06] MEDS: METOPROLOL TARTRATE 50 MG TABLET PO SCH ×2 (08:45→20:04)
[2020-12-06] MEDS: NATEGLINIDE 120 MG TABLET PO SCH ×3 (08:45→17:47)
[2020-12-06] MEDS: PANTOPRAZOLE 40 MG TABLET PO SCH (08:45)
[2020-12-06] MEDS: ATORVASTATIN 40 MG TABLET PO SCH (08:45)
[2020-12-06] MEDS: ENOXAPARIN 40 MG/0.4 ML SYRINGE SQ SCH (08:45)
[2020-12-06] MEDS: Empagliflozin [Jardiance] 25 mg tablet PO SCH (08:45)
[2020-12-06] MEDS: FUROSEMIDE 40 MG/4 ML VIAL IV SCH ×2 (11:07→17:47)
[2020-12-06] MEDS: INSULIN GLARGINE, HUMAN 1 UNIT/0.01 ML SQ SCH ×2 (11:08→20:58)
[2020-12-06 12:56] LABS: Vit D 1,25 Dihydroxy 92 pg/mL (18-72)
--- NOTE | 2020-12-06 17:17 | Internal Med Progress Note ---
SUBJECTIVE Subjective Patient information: Note initiated : 12/06/20 at 5:13 pm Service Date, if different from initiated Date: [] Patient: Jennifer Luu a 65 y/o M admitted on 11/26/20 for shortness of breath, body aches, fatigue. Chief Complaint: [] Interval history: History of present illness: Mr. Luu is a 64 year old M History of diabetes hypertension CAD who has been feeling ill for about a week and started with sore throat body aches and fevers per day fatigue shortness of breath he has a cough that is mildly productive. Shortness of breath has been worsening a week and fatigue has been worsening. Presented to urgent care today and then sent to the ER because he was hypoxic in the mid 80s. Covid test was positive. Chest x-ray with bilateral infiltrates. He is on 3 to 4 L nasal cannula at this time. Denies chest pain. 11/28: Afebrile overnight. Been on Vapotherm. Blood cultures no growth to date. Patient is c/o shortness of breath, moderate. He is c/o nonproductive cough as well as respiratory wheezing. He denies any chest pain. He denies any fever or chills or sweating. 11/29: Afebrile overnight. Been on Vapotherm. Blood cultures no growth to date. Patient is c/o shortness of breath, mild and improving. He is c/o productive cough with brown sputum. He denies any respiratory wheezing. He denies any chest pain. He denies any fever or chills or sweating. 11/30: afebrile overnight. Switched to BiPAP overnight with FiO2 50% and IPAP EPAP 03/29. Been prone overnight. Patient is c/o moderate hortness of breath. c/o nonproductive cough. Denies wheezing. Denies chest pain. Denies fever or chills. Denies anxiety. 12/01: Afebrile overnight. Been tolerating partial prone. Been on CPAP FiO2 55%, pressure of 12. Improving degree of shortness of breath. c/o nonproductive cough. Denies wheezing. Denies chest pain. Denies fever or chills. Denies anxiety. 12/02: Afebrile overnight. Been tolerating partial prone. Been switched to high flow oxygen 7-9L/min. Improving degree of shortness of breath. c/o nonproductive cough. Denies wheezing. Denies chest pain. Denies fever or chills. Denies anxiety. 12/03: Feels better today, oxygen decreased to 5 L/minute. Desaturates with activity. Decreased Lantus to 70 units BID. The patient is anxious to go home, discussed that he will probably need home oxygen at discharge. The patient went into atrial fibrillation with RVR, started on lopressor. Completed antibiotic treatment for possible community aquired pneumonia. 12/04: Weaned down to 4 L/min nasal canula oxygen discussed oral anticoagulation for atrial fibrillation diagnosis, the patient said he will think about it to day. TTE ordered for new diagnosis of atrial fibrillation, atrial fibrillation rate control improved on Lopressor. CHADS VASc calculated to be 2 with an annual stroke risk of about 2.2%. Discussed anticoagulation with the patient in detail, the patient will think about it. 12/05: Weaned to 3 L/min nasal canula oxygen, more active in room without severe dyspnea, tolerating diet. Acceptable rate control on metoprolol. Discussed anticoagulation once again, the patient declined oral anticoagulation therapy as he feels he is already on to many maintenance medications. I again reiterated the risk of stroke but he continues to refuse anticoagulation. ECHO pending. Possible discharge to home tomorrow, will probably need home oxygen at discharge. 12/06: The patient says he wants to start anticoagulation for atrial fibrillation, started Eliquis 5 mg BID. Lasix IV BID for diuresis as patient is somewhat volume overloaded, likely discharge tomorrow on home oxygen. Review of Systems: no fevers, improving dyspnea Physical exam Head: Atraumatic, normal inspection. Eyes: normal appearance, no scleral icterus. Neck: full ROM Respiratory: nasal canula oxygen at 5 l/min, no respiratory distress. Cardiovascular: irregular tachycardia, S1, S2. GI/Abdominal: soft, nontender, no guarding. Extremities: full range of motion, nontender. Neurological: CN II-XII intact, intact motor, intact sensation. Psychiatric: normal mood. Skin: warm, normal color Constitutional Vitals: Vital Signs Temp Pulse Resp BP Pulse Ox 98.3 F 74 16 96/65 97 12/06/20 12:01 12/06/20 14:03 12/05/20 23:40 12/06/20 14:03 12/06/20 14:03 Period Temp Pulse Resp BP Sys/Uriostegui Pulse Ox Last 24 Hr 97.5 F-98.9 F 67-93 16 92-132/59-89 88-97 Intake and Output 12/06/20 12/06/20 12/06/20 05:59 13:59 21:59 Intake Total 340 480 Output Total 900 2350 450 Balance -560 -1870 -450 Weight 117.118 kg Patient Weight 12/07/20 05:59 Weight 117.118 kg Intake & Output: Intake & Output 12/06/20 12/06/20 12/06/20 05:59 13:59 21:59 Intake Total 340 480 Output Total 900 2350 450 Balance -560 -1870 -450 Weight 117.118 kg Intake: Oral 340 480 Output: Void Amount 900 2350 450 Other: Urine Appearance Clear Clear Urine Color Pale Pale OBJ DATA Labs CBC & Chem 7: 12/02/20 05:31 12/06/20 05:03 Labs: Abnormal Lab Results 12/06/20 12/05/20 12/04/20 05:03 05:27 15:25 Sodium 131 L Carbon Dioxide 21 L 20 L Glucose 123 H 115 H 323 H Lactate Dehydrogenase 267 H 264 H 366 H Total Protein 5.5 L 5.4 L Albumin 2.7 L 2.8 L 2.9 L Albumin/Globulin Ratio 0.9 L Triglycerides 270 H 210 H 312 H Vit D 1,25-Dihydroxy 12/01/20 15:13 Sodium Carbon Dioxide Glucose Lactate Dehydrogenase Total Protein Albumin Albumin/Globulin Ratio Triglycerides Vit D 1,25-Dihydroxy 92 H Meds: Medications Acetaminophen (Acetaminophen 325 Mg Tablet) 650 mg PO Q6HP PRN PRN Reason: PAIN/FEVER > 101 Albuterol/Ipratropium (Ipratropium/Albuterol 3 Ml Ampul.Neb) 3 ml NEB Q4HP PRN PRN Reason: Shortness Of Breath Last Admin: 11/30/20 11:15 Dose: 3 ml Documented by: Apixaban (Apixaban 5 Mg Tablet) 5 mg PO BID [facility] Aspirin (Aspirin 81 Mg Tab.Chew) 81 mg PO DAILY [facility] Last Admin: 12/06/20 08:44 Dose: 81 mg Documented by: Atorvastatin Calcium (Atorvastatin 40 Mg Tablet) 40 mg PO QDAY [facility] Last Admin: 12/06/20 08:45 Dose: 40 mg Documented by: Dexamethasone (Dexamethasone 4 Mg Tablet) 6 mg PO DAILY [facility] Last Admin: 12/06/20 08:44 Dose: 6 mg Documented by: Dextrose (Dextrose 50% 50 Ml Vial) 0 ml IV UD PRN PRN Reason: Hypoglycemia Diagnostic Test (Pha) (Accu-Chek 1 Each Strip) 1 each FS ACHS [facility] Last Admin: 12/06/20 13:20 Dose: 1 each Documented by: Enoxaparin Sodium (Enoxaparin 40 Mg/0.4 Ml Syringe) 40 mg SQ DAILY [facility] Last Admin: 12/06/20 08:45 Dose: 40 mg Documented by: Furosemide (Furosemide 40 Mg/4 Ml Vial) 40 mg IV BIDD [facility] Last Admin: 12/06/20 11:07 Dose: 40 mg Documented by: Glucose (Dextrose 31 Gm Oral.Susp) 15 gm PO PRN PRN PRN Reason: Hypoglycemia Magnesium Sulfate (Magnesium Sulfate) 2 gm in 50 mls @ 50 mls/hr IV UD PRN PRN Reason: Magnesium </= 1.6 Potassium Chloride 40 meq/ (Dextrose) 520 mls @ 130 mls/hr IV UD PRN PRN Reason: Potassium < 3 Insulin Glargine (Insulin Glargine, Human 1 Unit/0.01 Ml) 70 unit SQ BID [facility] Last Admin: 12/06/20 11:08 Dose: 70 units Documented by: Insulin Human Lispro (Insulin Lispro 1 Unit/0.01 Ml Unit) 0 unit SQ [facility]; Protocol Last Admin: 12/06/20 13:22 Dose: 3 unit Documented by: Metoprolol Tartrate (Metoprolol Tartrate 50 Mg Tablet) 50 mg PO BID [facility] Last Admin: 12/06/20 08:45 Dose: 50 mg Documented by: Metoprolol Tartrate (Metoprolol Tartrate 5 Mg/5 Ml Vial) 5 mg IV Q4HP PRN PRN Reason: Tachyarrhythmias Last Admin: 12/05/20 21:41 Dose: 5 mg Documented by: Nateglinide (Nateglinide 120 Mg Tablet) 60 mg PO TIDAC [facility] Last Admin: 12/06/20 13:20 Dose: 60 mg Documented by: Ondansetron HCl (Ondansetron 4 Mg/2 Ml Vial) 4 mg IV Q4HP PRN PRN Reason: Nausea And Vomiting Pantoprazole Sodium (Pantoprazole 40 Mg Tablet) 40 mg PO QAMAC [facility] Last Admin: 12/06/20 08:45 Dose: 40 mg Documented by: Empagliflozin [ Jardiance] 25 Mg Tablet 1 dose PO QDAY [facility] Last Admin: 12/06/20 08:45 Dose: 1 dose Documented by: Polyethylene Glycol (Polyethylene Glycol 3350 17 Gm Packet) 17 gm PO DAILYP PRN PRN Reason: Constipation Potassium Chloride (Potassium Chloride 20 Meq Tablet) 40 meq PO UD PRN PRN Reason: Potssium is 3-3.5 Last Admin: 12/01/20 18:39 Dose: 40 meq Documented by: Potassium Chloride (Potassium Chloride 20 Meq Tablet) 40 meq PO UD PRN PRN Reason: Potassium < 3 Senna (Sennosides 1 Tablet) 2 tab PO DAILYP PRN PRN Reason: Constipation Sodium Chloride (0.9 % Sodium Chloride 10 Ml Syringe) 10 ml IV Q8 [facility] Last Admin: 12/06/20 13:21 Dose: 10 ml Documented by: A/P Narrative A/P Narrative: Assessment: 65 year old male with a history of HTN, T2DM, CAD admitted for severe COVID-19 pneumonia. #Acute hypoxic respiratory failure-improving #Severe COVID-19 pneumonia #Atrial fibrillation-rate controlled #Acute on chronic diastolic heart failure #Treated bacterial pneumonia coinfection #Type 2 diabetes mellitus-insulin dependent #Hypertension #GERD Plan -Continue Dexamethasone for a total of 10 days, completed Remdesivir x5 days. -Oxygen supplementation, wean as tolerated. -Lasix IV BID today and tomorrow morning then transition to home lasix for discharge. -Completed Ceftriaxone and Azithromycin for possible pneumonia. -Lantus and SSI. -Lopressor BID for rate control. -Start Eliquis BID for anticoagulation. -Follow up pending TTE report. -Holding home Lisinopril. -Continue home Aspirin, Atorvastatin, Empagliflozin, Nateglinide. -DVT ppx: Lovenox SQ -Code status: Full -Disposition: probably home, home oxygen evaluation before discharge. Time Spent With Patient Time: Total time spent is greater than 50% in coordination of care (as documented) at patient's floor/unit and/or counseling patient:
[2020-12-06] MEDS: METOPROLOL TARTRATE 5 MG/5 ML VIAL IV PRN ×2 (18:52→20:04)
[2020-12-06] MEDS: APIXABAN 5 MG TABLET PO SCH (20:56)
[2020-12-07] MEDS: INSULIN LISPRO 1 UNIT/0.01 ML UNIT SQ SCH ×3 (00:53→12:08)
[2020-12-07] MEDS: 0.9 % SODIUM CHLORIDE 10 ML SYRINGE IV SCH (05:48)
[2020-12-07] MEDS: PANTOPRAZOLE 40 MG TABLET PO SCH (08:13)
[2020-12-07] MEDS: NATEGLINIDE 120 MG TABLET PO SCH ×2 (08:13→12:09)
[2020-12-07] MEDS: DEXAMETHASONE 4 MG TABLET PO SCH (08:14)
[2020-12-07] MEDS: ATORVASTATIN 40 MG TABLET PO SCH (08:14)
[2020-12-07] MEDS: INSULIN GLARGINE, HUMAN 1 UNIT/0.01 ML SQ SCH (08:14)
[2020-12-07] MEDS: APIXABAN 5 MG TABLET PO SCH (08:14)
[2020-12-07] MEDS: ASPIRIN 81 MG TAB.CHEW PO SCH (08:14)
[2020-12-07] MEDS: ENOXAPARIN 40 MG/0.4 ML SYRINGE SQ SCH (08:15)
[2020-12-07] MEDS: Empagliflozin [Jardiance] 25 mg tablet PO SCH (08:15)
[2020-12-07] MEDS: METOPROLOL TARTRATE 50 MG TABLET PO SCH (08:15)
[2020-12-07 08:31] LABS: ALT/SGPT 25 U/L (<40); AST/SGOT 12 U/L (<40); Albumin 3.2 gm/dL (3.2-5.2); Alkaline Phosphatase 85 U/L (39-117); Bilirubin,Direct < 0.2 mg/dL (0-0.3); Bilirubin,Total 0.4 mg/dL (0.1-1.0); Blood Urea Nitrogen 25 mg/dL (8-23); Calcium 9.3 mg/dL (8.6-10.4); Carbon Dioxide 22 mmol/L (22-30); Chloride 99 mmol/L (96-108); Globulin 3.1 gm/dL (2.2-3.7); Glomerular Filtration Rate 95; Glucose 109 mg/dL (70-105); Lactate Dehydrogenase 283 U/L (135-225); Phosphorous 4.8 mg/dL (2.5-4.5); Triglycerides 249 mg/dL (<150); Uric Acid 5.4 mg/dL (2.5-8.0)
--- NOTE | 2020-12-07 11:05 | Discharge Summary ---
Discharge Provider Provider Patient information: Note initiated : 12/07/20 at 10:55 am Service Date, if different from initiated Date: [] Patient: Jennifer Luu 65 y/o M admitted on 11/26/20 for shortness of breath, body aches, fatigue. Chief Complaint: [] Date of admission: 11/26/20 20:54 Discharge date: 12/07/20 Primary care physician: Mitul Avilse MD Consults: 11/26/20 Consult to Physician [CONS] Stat Comment: Consulting Provider: Dyllan Roland Reason For Exam: Physician to Consult Discharge Meds Discharge Medications Home Medications insulin detemir U-100 See Rx Instructions .ROUTE .COMPLEX 07/01/15 [History Confirmed 11/27/20 Last Taken 06/30/15] omeprazole 20 mg PO ACB 07/01/15 [History Confirmed 11/27/20 Last Taken 06/30/15] saxagliptin 5 mg PO DAILY 07/01/15 [History Confirmed 11/27/20 Last Taken 06/30/15] atorvastatin 40 mg tablet 40 mg PO QDAY 05/14/19 [History Confirmed 11/27/20 Last Taken Unknown] furosemide 20 mg tablet 20 mg PO QAM 05/14/19 [History Confirmed 11/29/20 Last Taken Unknown] empagliflozin 25 mg tablet 25 mg PO QDAY 10/19/20 [History Confirmed 11/27/20 Last Taken Unknown] nateglinide 60 mg tablet 60 mg PO TID 10/19/20 [History Confirmed 11/27/20 Last Taken Unknown] ergocalciferol (vitamin D2) 1,250 mcg PO WEEKLY 11/27/20 [History Confirmed 11/30/20 Last Taken 11/24/20] pen needle, diabetic [Unifine Pentips Plus] 11/27/20 [History Confirmed 11/27/20 Last Taken Unknown] pioglitazone 45 mg PO DAILY 11/27/20 [History Confirmed 11/27/20 Last Taken Unknown] apixaban [Eliquis] 5 mg PO BID #60 tab 12/07/20 [Rx Last Taken Unknown] metoprolol tartrate 75 mg PO BID #90 tab 12/07/20 [Rx Last Taken Unknown] COURSE Hospital Course Hospital course: Mr. Luu is a 64 year old M History of diabetes hypertension CAD who has been feeling ill for about a week and started with sore throat body aches and fevers per day fatigue shortness of breath he has a cough that is mildly productive. Shortness of breath has been worsening a week and fatigue has been worsening. Presented to urgent care today and then sent to the ER because he was hypoxic in the mid 80s. Covid test was positive. Chest x-ray with bilateral infiltrates. He is on 3 to 4 L nasal cannula at this time. Denies chest pain. 11/28: Afebrile overnight. Been on Vapotherm. Blood cultures no growth to date. Patient is c/o shortness of breath, moderate. He is c/o nonproductive cough as well as respiratory wheezing. He denies any chest pain. He denies any fever or chills or sweating. 11/29: Afebrile overnight. Been on Vapotherm. Blood cultures no growth to date. Patient is c/o shortness of breath, mild and improving. He is c/o productive cough with brown sputum. He denies any respiratory wheezing. He denies any chest pain. He denies any fever or chills or sweating. 11/30: afebrile overnight. Switched to BiPAP overnight with FiO2 50% and IPAP EPAP 03/29. Been prone overnight. Patient is c/o moderate shortness of breath. c/o nonproductive cough. Denies wheezing. Denies chest pain. Denies fever or chills. Denies anxiety. 12/01: Afebrile overnight. Been tolerating partial prone. Been on CPAP FiO2 55%, pr essure of 12. Improving degree of shortness of breath. c/o nonproductive cough. Denies wheezing. Denies chest pain. Denies fever or chills. Denies anxiety. 12/02: Afebrile overnight. Been tolerating partial prone. Been switched to high flow oxygen 7-9L/min. Improving degree of shortness of breath. c/o nonproductive cough. Denies wheezing. Denies chest pain. Denies fever or chills. Denies anxiety. 12/03: Feels better today, oxygen decreased to 5 L/minute. Desaturates with activity. Decreased Lantus to 70 units BID. The patient is anxious to go home, discussed that he will probably need home oxygen at discharge. The patient went into atrial fibrillation with RVR, started on lopressor. Completed antibiotic treatment for possible community aquired pneumonia. 12/04: Weaned down to 4 L/min nasal canula oxygen discussed oral anticoagulation for atrial fibrillation diagnosis, the patient said he will think about it today. Recent TTE shows normal LVEF and no significant mitral or atrial valve p athology, atrial fibrillation rate control improved on Lopressor. CHADS VASc calculated to be 2 with an annual stroke risk of about 2.2%. Discussed anticoagulation with the patient in detail, the patient will think about it. 12/05: Weaned to 3 L/min nasal canula oxygen, more active in room without severe dyspnea, tolerating diet. Acceptable rate control on metoprolol. Discussed anticoagulation once again, the patient declined oral anticoagulation therapy as he feels he is already on to many maintenance medications. I again reiterated the risk of stroke but he continues to refuse anticoagulation. Possible discharge to home tomorrow, may require home oxygen at discharge. 12/06: The patient says he wants to start anticoagulation for atrial fibrillation, started Eliquis 5 mg BID. Lasix IV BID for diuresis as patient is somewhat volume overloaded, likely discharge tomorrow. 12/07: Weaned to room air today. Still in atrial fibrillation, heart rate on property assessment monitor still mildly elevated, discharged to home on Lopressor 75 mg BID for atrial fibrillation rate control. Holding Lisinopril and Bystolic at discharge as well as Aspirin since the patient is now anticoagulated with Eliquis for atrial fibrillation. Completed course of Dexamethasone and Remdesivir inpatient. Post hospital follow up; -Rate control for atrial fibrillation-discharged on Lopressor 75 mg BID. -Blood pressure management-holding prior Lisinopril and Bystolic, consider resuming lisinopril. -Volume status-consider increasing lasix dose and/or frequency. -Life style changes-diet, exercise, weight loss, etc. Physical exam Head: Atraumatic, normal inspection. Eyes: normal appearance, no scleral icterus. Neck: full ROM Respiratory: room air, no respiratory distress. Cardiovascular: irregular tachycardia, S1, S2. GI/Abdominal: soft, nontender, no guarding. Extremities: full range of motion, nontender, bilateral lower exteremity edema Neurological: CN II-XII intact, intact motor, intact sensation. Psychiatric: normal mood. Skin: warm, normal color Discharge diagnosis: Severe COVID-19 pneumonia Time Spent with Patient Time attestation: Total time spent providing and/or coordinating discharge services: EXAM Constitutional Vitals: Temp Pulse Resp BP Pulse Ox 98.0 F 92 H 20 105/85 97 12/07/20 08:00 12/07/20 08:00 12/07/20 01:47 12/07/20 08:00 12/07/20 08:00 Discharge Data Data Completed and Pending Labs on day of discharge: Labs from last 24 hours 12/07/20 12/01/20 04:59 15:13 Sodium 137 Potassium 4.3 Chloride 99 Carbon Dioxide 22 Anion Gap 16.0 BUN 25 H Creatinine 0.8 GFR Calculation 95 Glucose 109 H Uric Acid 5.4 Calcium 9.3 Phosphorus 4.8 H Magnesium 2.5 Total Bilirubin 0.4 Direct Bilirubin < 0.2 GGT 31 AST 12 ALT 25 Alkaline Phosphatase 85 Lactate Dehydrogenase 283 H Total Protein 6.3 Albumin 3.2 Globulin 3.1 Albumin/Globulin Ratio 1.0 Triglycerides 249 H Vit D 1,25-Dihydroxy 92 H 1,25 Dihydroxy Vit D2 55 1,25 Dihydroxy Vit D3 37 Discharge Plan Patient/Caregiver Discharge Instructions Activity: increase activity as tolerated Diet: Low Sodium (2gm) and Consistent Carbohydrate Instructions: Metoprolol (By mouth), Apixaban (By mouth), A-fib (Atrial Fibrillation) (GEN), How to Take a Blood Pressure (GEN), Meal Planning with Diabetes Exchanges (GEN), Type 2 Diabetes in the Older Adult (GEN), COVID-19 (Coronavirus Disease 2019)(GEN) Prescriptions: New Eliquis 5 mg Tablet 5 mg PO BID Qty: 60 RF: 4 metoprolol tartrate 50 mg Tablet 75 mg PO BID Qty: 90 RF: 4 Continued nateglinide 60 mg tablet 60 mg PO TID RF: 0 Jardiance 25 mg tablet 25 mg PO QDAY RF: 0 furosemide [Lasix] 20 mg tablet 20 mg PO QAM RF: 0 atorvastatin 40 mg tablet 40 mg PO QDAY RF: 0 omeprazole 20 MG capsule 20 mg PO ACB RF: 0 insulin detemir U-100 100 UNIT/ML solution See Rx Instructions .ROUTE .COMPLEX RF: 0 saxagliptin 2.5 MG tablet 5 mg PO DAILY RF: 0 pioglitazone 45 mg tablet 45 mg PO DAILY RF: 0 (DME) pen needle, diabetic [Unifine Pentips Plus] 31 gauge x 5/16" needle MISCELLANEOUS RF: 0 ergocalciferol (vitamin D2) 1,250 mcg (50,000 unit) capsule 1,250 mcg PO WEEKLY RF: 0 Discontinued Bystolic 20 mg tablet 20 mg PO QDAY RF: 0 aspirin 81 mg tablet,delayed release (DR/EC) 81 mg PO QDAY RF: 0 lisinopril 20 MG tablet 40 mg PO DAILY RF: 0 Follow Up Plan Follow up with: Mitul Aviles MD [Primary Care Provider] - 12/16/20 11:00 am (Please check in at 10:45) Patient Disposition: Home, Self-Care Prognosis: Fair Overall status at discharge: patient is progressing back to baseline Discharge Orders: Discharge Order (Routine); Ordered 12/07/20 Ordered By: Lior Ardon
== END 2020-12-07 13:15 | disposition home or self-care (01) | DRG 177 ==
LOC: ED 15:32 → ICU 20:54
PROVIDERS: ADMIT Internal Medicine; ATTEND Internal Medicine